=== PATIENT | male | born 1935 | race Caucasian/White ===

== ENCOUNTER → 2019-03-24 12:41 | Outpatient (BNVA) | payer MEDICARE, OTHER, SELFPAY | PROVIDERS: Family Provider Nurse Practitioner; PCP Nurse Practitioner; Visit Provider Nurse Practitioner | DX: E11.9 Type 2 diabetes mellitus without complications (principal); Z79.84 Long term (current) use of oral hypoglycemic drugs; N40.1 Benign prostatic hyperplasia with lower urinary tract symptoms; Z98.61 Coronary angioplasty status; I25.10 Atherosclerotic heart disease of native coronary artery without angina pectoris; E78.5 Hyperlipidemia, unspecified | CPT/HCPCS: 80053; 80061; 83036 ==

== ENCOUNTER → 2019-06-30 17:53 | Outpatient (BNVA) | payer MEDICARE, OTHER, SELFPAY | PROVIDERS: Family Provider Nurse Practitioner; PCP Nurse Practitioner; Visit Provider Nurse Practitioner | DX: E11.9 Type 2 diabetes mellitus without complications (principal); Z79.84 Long term (current) use of oral hypoglycemic drugs; E78.5 Hyperlipidemia, unspecified | CPT/HCPCS: 80053; 80061; 83036 ==

== ENCOUNTER → 2019-12-30 09:18 | Outpatient (BNVA) | payer MEDICARE, OTHER, SELFPAY | PROVIDERS: Family Provider Nurse Practitioner; PCP Nurse Practitioner; Visit Provider Nurse Practitioner | DX: E11.9 Type 2 diabetes mellitus without complications (principal); N40.1 Benign prostatic hyperplasia with lower urinary tract symptoms; I25.10 Atherosclerotic heart disease of native coronary artery without angina pectoris; E78.5 Hyperlipidemia, unspecified; Z79.84 Long term (current) use of oral hypoglycemic drugs; Z95.5 Presence of coronary angioplasty implant and graft | CPT/HCPCS: 80053; 80061; 81000; 83036 ==

== ENCOUNTER → 2020-12-16 11:16 | Outpatient (BNVA) | payer MEDICARE, OTHER, SELFPAY | PROVIDERS: Family Provider Nurse Practitioner; PCP Nurse Practitioner; Visit Provider Nurse Practitioner | DX: E11.9 Type 2 diabetes mellitus without complications (principal); E78.5 Hyperlipidemia, unspecified; Z79.84 Long term (current) use of oral hypoglycemic drugs; Z23 Encounter for immunization | CPT/HCPCS: 80053; 80061; 83036; 83721 ==

== ENCOUNTER → 2021-03-14 10:15 | Outpatient (BNVA) | payer MEDICARE, OTHER, SELFPAY | PROVIDERS: Family Provider Nurse Practitioner; PCP Nurse Practitioner; Visit Provider Nurse Practitioner | DX: E11.9 Type 2 diabetes mellitus without complications (principal); Z79.84 Long term (current) use of oral hypoglycemic drugs; R30.0 Dysuria | CPT/HCPCS: 80053; 81003; 85025; 87077; 87086; 87184 ==

== ENCOUNTER → 2021-06-22 13:14 | Outpatient (BNVA) | payer MEDICARE, OTHER, SELFPAY | PROVIDERS: Family Provider Nurse Practitioner; PCP Nurse Practitioner; Visit Provider Internal Medicine | DX: I25.10 Atherosclerotic heart disease of native coronary artery without angina pectoris (principal); E11.9 Type 2 diabetes mellitus without complications; Z79.84 Long term (current) use of oral hypoglycemic drugs; E78.5 Hyperlipidemia, unspecified; Z95.5 Presence of coronary angioplasty implant and graft | CPT/HCPCS: 99213 ==

== ENCOUNTER → 2021-12-22 10:08 | Outpatient (BNVA) | payer MEDICARE, OTHER, SELFPAY | PROVIDERS: Family Provider Nurse Practitioner; PCP Nurse Practitioner; Visit Provider Nurse Practitioner | DX: E11.9 Type 2 diabetes mellitus without complications (principal); Z79.84 Long term (current) use of oral hypoglycemic drugs | CPT/HCPCS: 80053; 80061; 83036 ==

== ENCOUNTER → 2022-03-22 10:20 | Outpatient (BNVA) | payer MEDICARE, OTHER, SELFPAY | PROVIDERS: Family Provider Nurse Practitioner; PCP Nurse Practitioner; Visit Provider Nurse Practitioner | DX: R05.9 Cough, unspecified (principal) | CPT/HCPCS: 71046 ==

== ENCOUNTER → 2022-06-21 13:18 | Outpatient (BNVA) | payer MEDICARE, OTHER, SELFPAY | PROVIDERS: Family Provider Nurse Practitioner; PCP Nurse Practitioner; Visit Provider Internal Medicine | DX: I25.10 Atherosclerotic heart disease of native coronary artery without angina pectoris (principal); E11.9 Type 2 diabetes mellitus without complications; Z79.84 Long term (current) use of oral hypoglycemic drugs; E78.5 Hyperlipidemia, unspecified; Z95.5 Presence of coronary angioplasty implant and graft; Z79.82 Long term (current) use of aspirin | CPT/HCPCS: 99214 ==

== ENCOUNTER → 2022-09-12 11:40 | Outpatient (BNVA) | payer MEDICARE, OTHER, SELFPAY | PROVIDERS: Family Provider Nurse Practitioner; PCP Nurse Practitioner; Visit Provider Nurse Practitioner | DX: E11.9 Type 2 diabetes mellitus without complications (principal); Z79.84 Long term (current) use of oral hypoglycemic drugs | CPT/HCPCS: 80053; 80061; 83036 ==

== ENCOUNTER → 2022-12-31 12:05 | Outpatient (BNVA) | payer MEDICARE, OTHER, SELFPAY | PROVIDERS: Family Provider Nurse Practitioner; PCP Nurse Practitioner; Visit Provider Nurse Practitioner | DX: E11.9 Type 2 diabetes mellitus without complications (principal); Z79.84 Long term (current) use of oral hypoglycemic drugs; E78.5 Hyperlipidemia, unspecified | CPT/HCPCS: 80053; 80061; 82607; 83036; 84443 ==

== ENCOUNTER 2023-06-15 19:32 | Inpatient (IN) | payer MEDICARE, OTHER, SELFPAY ==
[2023-06-15] VITALS (10 sets, daily range): BP systolic 144–203; BP diastolic 69–108; PULSE 71–81; RESP 18–24; TEMP 36.6–36.7; O2SAT 90–97; BMI 26.6
--- NOTE | 2023-06-15 19:42 | ECG_ITS ---
[facility] Test Date: 2023-06-15 Pat Name: Bernardo Barnett Department: Room: Gender: Male Set Up Person: : 1935 Requested By: Dandy Granda Order Number: [id number] Aleah MD: Cole Gonzalez M.D. Measurements Intervals [place] Rate: 70 P: 43 MS: 203 QRS: 46 QRSD: 108 T: -37 QT: 379 QTc: 410 Interpretive Statements SINUS RHYTHM PROBABLE LATERAL MYOCARDIAL INFARCTION , OF INDETERMINATE AGE [35 ms Q WAVE IN I/aVL/V5/V6] PROBABLE INFERIOR MYOCARDIAL INFARCTION , OF INDETERMINATE AGE [35 ms Q WAVE IN II/aVF] Compared to ECG 01/02/2017 09:19:42 No significant changes Electronically Signed On 06-16-2023 8:13:18 CDT by Cole Gonzalez M.D. [email or web address]
--- NOTE | 2023-06-15 19:44 | CTR_ITS ---
PROCEDURE INFORMATION: Exam: CT Head Without Contrast Exam date and time: 06/15/2023 7:55 PM Age: 88 years old Clinical indication: Stroke-like symptoms; Altered mental status/memory loss; Additional info: RT facial droop; Sudden onset AMS TECHNIQUE: Imaging protocol: Computed tomography of the head without contrast. Radiation optimization: All CT scans at this facility use at least one of these dose optimization techniques: automated exposure control; mA and/or kV adjustment per patient size (includes targeted exams where dose is matched to clinical indication); or iterative reconstruction. Other technique: STROKE PROTOCOL was implemented. COMPARISON: CT cervical spin wo con* [id number] 01/02/2017 12:39 PM RADIATION DOSE METRICS: Total DLP (mGy-cm): 1038.48 FINDINGS: Brain: No hemorrhage. No edema. Moderate diffuse cerebral atrophy and mild sequela of chronic small vessel ischemic disease. No mass effect. Cerebral ventricles: No ventriculomegaly. Paranasal sinuses: Visualized sinuses are unremarkable. No fluid levels. Mastoid air cells: Visualized mastoid air cells are well aerated. Bones/joints: Unremarkable. No acute fracture. Soft tissues: Unremarkable. CT/CT head thrombolytic [id number] IMPRESSION: No acute intracranial abnormality. ASSESSMENT: ASPECTS (Josephine Stroke Program Early CT Score) is 10.
--- NOTE | 2023-06-15 19:44 | XRR_ITS ---
PROCEDURE INFORMATION: Exam: XR Chest Exam date and time: 06/15/2023 7:49 PM Age: 88 years old Clinical indication: Prior surgery; Surgery date: 6+ months; Surgery type: Cardiac stent 2014; Patient HX: AMS; Possible CVA TECHNIQUE: Imaging protocol: Radiologic exam of the chest. Views: 1 view. COMPARISON: CR XR chest 2V* [id number] 03/22/2022 10:23 AM FINDINGS: Lungs: Unremarkable. No consolidation. Pleural spaces: Unremarkable. No pleural effusion. No pneumothorax. Heart/Mediastinum: Unremarkable. No cardiomegaly. Bones/joints: Visualized osseous structures are intact. XR/XR chest 1V portable [id number] IMPRESSION: No acute findings.
--- NOTE | 2023-06-15 19:49 | ED_ITS ---
HPI - Neuro Symptoms/Deficit 2 General: Chief Complaint: Neuro Symptoms/Deficit Stated Complaint: possible stroke Time Seen by Provider: 06/15/23 19:44 History of Present Illness: Patient presented to the ER today with complaints of sudden onset strokelike symptoms. Patient was walking in from working [place] and noticed his right side was a little weak to the point he dropped his cane and said he felt weird to his family. Family checked his blood pressure and noticed it was high so they brought him to the ER immediately. Patient has been off his Plavix for approximately 10 days secondary to a dental procedure. Patient was on his Plavix due to cardiac stents multiple years ago. Patient was last known well was approximately 7 PM. Patient alert oriented x 3, blood glucose is 94, repeat blood pressure is 172/86, patient might have minimal right-sided facial droop and possible decrease in sensation in his right side he just says it feels different. However he says it feels different on his face his upper arm his chest and his lower extremity all equally. 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 CAD (coronary artery disease) Benign prostatic hyperplasia with lower urinary tract symptoms History of pneumothorax Hyperlipidemia Osteoarthritis of knees, bilateral Diabetes mellitus treated with oral medication Surgical History History of retinal detachment Right eye History of appendectomy History of cholecystectomy History of coronary angioplasty History of right inguinal hernia repair History of stem cell transplant Bilateral knees April 2018 Presence of stent in coronary artery 2005 at [facility] [place] Family History Mother Diabetes Brother Diabetes Cancer CLL Social History Smoking and tobacco/nicotine status: never used tobacco/nicotine Second hand smoke exposure: No Alcohol intake: never Substance/Drug Use: never Adopted: No Caregiver/support person: No Lives independently: Yes Household members: spouse Housing: House Marital status: / Number of children: 3 service: Yes branch: [employer] Current occupational status: retired Pets and animals: No Do you think of yourself as: Straight/Heterosexual Current gender identity: Male NIH stroke score 2 NIHSS: Level Of Consciousness - 1a: 0 Level Of Consciousness Questions - 1b: Both Correct Level Of Consciousness Commands - 1c: Both Correct Best Gaze - 2: Normal Visual Mora - 3: Partial Hemianopia Facial Palsy - 4: M inor Paralysis Motor Arm Right - 5: No Drift Motor Arm Left - 5: No Drift Motor Leg Right - 6: No Drift Motor Leg Left - 6: No Drift Limb Ataxia - 7: Absent Sensory - 8: Mild To Moderate Loss Best Language - 9: No Aphasia Dysarthia - 10: Normal Extinction And Inattention - 11: 0 Score: Total Score: 3 Physical Exam 2 Const: COMMON NORMALS: no acute distress, average body habitus, patient oriented x3, no limitations, healthy appearing, alert and well nourished HENMT: COMMON NORMALS: normocephalic, atraumatic, hearing grossly normal bilaterally, external ears normal, Normal external nose present, moist oral mucous membranes and oropharynx normal HEAD & SCALP: normocephalic and atraumatic NOSE: Normal external nose present EXTERNAL EAR: Yes external ears normal Eye: COMMON NORMALS: Equal, round and reactive pupils present, EOMs intact bilaterally, conjunctivae normal and no scleral icterus CONJUNCTIVA: Yes conjunctivae normal PUPIL: Yes Equal, round and reactive pupils present Neck/C-Spine: COMMON NORMALS: full ROM, no lymphadenopathy, supple, no meningeal signs, no JVD and Thyroid normal THYROID: Thyroid normal Chest: COMMONS NORMALS: normal inspection of the chest and normal palpation of entire chest wall Resp: COMMON NORMALS: normal respiratory effort, No retractions, No use of accessory muscles and clear to auscultation bilaterally AUSCULTATION: clear to auscultation bilaterally Cardio: COMMON NORMALS: no JVD, regular rate, regular rhythm, S1 normal heart sound present, S2 normal heart sound present, No gallops present (Cardio), No clicks present (Cardio) and No murmurs present (Cardio) RATE: regular rate RHYTHM: regular rhythm HEART SOUNDS: S1 normal heart sound present and S2 normal heart sound present GI: COMMON NORMALS: Normal to inspection, nondistended, normoactive bowel sounds present, Soft to palpation, non-tender, No hepatosplenomegaly present and no masses PALPATION: Yes Soft to palpation and Yes No hepatosplenomegaly present Neuro: COMMON NORMALS: patient oriented x3 SENSORIUM/ORIENTATION: Yes alert MENINGEAL SIGNS: Yes no meningeal signs Course 2 Vital Signs: Vital signs: Vital Signs Temperature 98.0 F 06/15/23 19:36 Pulse Rate 72 06/15/23 19:36 Respiratory Rate 18 06/15/23 19:36 Blood Pressure 195/90 06/15/23 19:36 Pulse Oximetry 97 06/15/23 19:36 Oxygen Delivery Me thod Room Air 06/15/23 19:36 MDM - Neuro Symptoms/Deficit Medical Decision Making Vitals physical exam lab work was performed, CT scan and chest x-ray all of which was essentially benign. 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 Patino did recommend TNKase secondary to the visual field deficit, we did transfer the images to the cloud so she can take a look at there was herself. Dr. Heck was consulted who wanted to place patient ICU observation for further evaluation and treatment. Differential Diagnosis Likely cerebrovascular accident and transient cerebral ischemia; Unlikely carpal tunnel syndrome, convulsions, delirium, subarachnoid hemorrhage, peripheral neuropathy or multiple sclerosis Medical Records I reviewed the patient's medical records. Lab Data I reviewed the patient's lab results. 06/15/23 19:38 06/15/23 19:38 Radiology Impressions Chest X-Ray 06/15/23 19:44 IMPRESSION: No acute findings. Head CT 06/15/23 19:44 IMPRESSION: No acute intracranial abnormality. ASSESSMENT: ASPECTS (Josephine Stroke Program Early CT Score) is 10. 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 IMPRESSION: No stenosis or occlusion. REFERENCES: NASCET CRITERIA. The degree of stenosis in the cervical segment of the internal carotid artery is based on NASCET criteria. Normal is no stenosis. Mild is less than 50% stenosis. Moderate is 50-69% stenosis. Severe is 70% to 99% stenosis. Total occlusion is no detectable patent lumen. ADDENDUM: 06/15/232032 THIS REPORT CONTAINS FINDINGS THAT MAY BE CRITICAL TO PATIENT CARE. The findings were verbally communicated via telephone conference with Dandy Granda at 8:31 PM CDT on 06/15/2023. The findings were acknowledged and understood. Laboratory Results WBC 5.56 10^3/uL (3.29-11.43) 06/15/23 19:38 RBC 4.59 10^6/uL (3.85-5.65) 06/15/23 19:38 Hgb 14.00 g/dL (11.27-16.99) 06/15/23 19:38 Hct 42.0 % (37-53) 06/15/23 19:38 MCV 91.5 fl (82-101) 06/15/23 19:38 MCH 30.5 pg (27-33) 06/15/23 19:38 MCHC 33.3 g/dL (30-55) 06/15/23 19:38 RDW 13.6 % (12.1-15.1) 06/15/23 19:38 Plt Count 337 10^3/cmm (157-399) 06/15/23 19:38 MPV 10.0 fL (7.4-10.4) 06/15/23 19:38 Neut % (Auto) 54.1 % 06/15/23 19:38 Lymph % (Auto) 29.0 % 06/15/23 19:38 Crowley % (Auto) 10.6 % 06/15/23 19:38 Eos % (Auto) 5.2 % 06/15/23 19:38 Baso % (Auto) 0.7 % 06/15/23 19:38 Neut # (Auto) 3.01 10^3/uL (1.8-7.7) 06/15/23 19:38 Lymph # (Auto) 1.6 10^3/uL (0.8-4.8) 06/15/23 19:38 Crowley # (Auto) 0.6 10^3/uL (0.2-0.9) 06/15/23 19:38 Eos # (Auto) 0.3 10^3/uL (0.0-0.8) 06/15/23 19:38 Baso # (Auto) 0.0 10^3/uL (0.0-0.1) 06/15/23 19:38 Nucleated RBC % (auto) 0 % 06/15/23 19:38 Nucleated RBCs # 0.0 /100WBC 06/15/23 19:38 PT 14.10 SECONDS (12.1-14.9) 06/15/23 19:38 INR 1.06 (0.8-1.2) 06/15/23 19:38 APTT 36.3 SECONDS (23.9-36.7) 06/15/23 19:38 Sodium 142 mmol/L (136-145) 06/15/23 19:38 Potassium 4.5 mmol/L (3.5-5.1) 06/15/23 19:38 Chloride 107 mmol/L (98-107) 06/15/23 19:38 Carbon Dioxide 27 mmol/L (22-29) 06/15/23 19:38 Anion Gap 12.5 (5-19) 06/15/23 19:38 BUN 18 mg/dL (8-23) 06/15/23 19:38 Creatinine 1.0 mg/dL (0.7-1.2) 06/15/23 19:38 GFR Calculation Not Reportable 06/15/23 19:38 Glucose 109 mg/dL (65-115) 06/15/23 19:38 Calculated Osmolality 296 mOsm/kg (285-295) H 06/15/23 19:38 Calcium 10.3 mg/dL (8.5-10.5) 06/15/23 19:38 Magnesium 2.0 mg/dL (1.7-2.3) 06/15/23 19:38 Total Bilirubin 0.3 mg/dL (0.15-1.2) 06/15/23 19:38 AST 23 U/L (0-40) 06/15/23 19:38 ALT 12 U/L (0-41) 06/15/23 19:38 Alkaline Phosphatase 66 U/L (40-130) 06/15/23 19:38 C-Reactive Protein 14.6 mg/L (0.0-4.9) H 06/15/23 19:38 Total Protein 7.4 g/dL (6.6-8.7) 06/15/23 19:38 Albumin 4.2 g/dL (3.5-5.2) 06/15/23 19:38 Globulin 3.2 g/dL (1.3-4.6) 06/15/23 19:38 TSH 1.66 uIU/mL (0.27-4.20) 06/15/23 19:38 Ethyl Alcohol < 10 mg/dL (0-10) 06/15/23 19:38 All radiology interpretation(s) finalized by discharge Discharge Plan Discharge Patient Disposition: Placed in Observation Clinical Impression: Cerebrovascular accident Qualifiers: CVA mechanism: unspecified Qualified Code(s): I63.9 - Cerebral infarction, unspecified Coding Level of Care Code ED Domestic Cleaner for Tera Huston
[2023-06-15 19:51] LABS: Basophils % 0.7 %; Eosinophils # 0.3 10^3/uL (0.0-0.8); Eosinophils % 5.2 %; Lymphocytes # 1.6 10^3/uL (0.8-4.8); Mean Corpuscular HGB Conc 33.3 g/dL (30-55); Mean Corpuscular Hemoglobin 30.5 pg (27-33); Mean Corpuscular Volume 91.5 fl (82-101); Monocytes # 0.6 10^3/uL (0.2-0.9); Monocytes % 10.6 %; Neutrophils # 3.01 10^3/uL (1.8-7.7); Neutrophils % 54.1 %; Nucleated Red Blood Cells % 0 %; Platelet Count 337 10^3/cmm (157-399); Red Blood Count 4.59 10^6/uL (3.85-5.65); Red Cell Distribution Width 13.6 % (12.1-15.1); White Blood Count 5.56 10^3/uL (3.29-11.43)
--- NOTE | 2023-06-15 19:54 | CTR_ITS ---
PROCEDURE INFORMATION: Exam: CTA Head With Contrast, Arteriography Exam date and time: 06/15/2023 7:59 PM Age: 88 years old Clinical indication: Stroke-like symptoms; Altered mental status/memory loss; Right facial droop; Additional info: RT facial droop; Sudden onset AMS TECHNIQUE: Imaging protocol: Computed tomographic angiography of the head with contrast. Exam focused on the arteries. 3D rendering (Not supervised by radiologist): MIP and/or 3D reconstructed images were created by the technologist. Radiation optimization: All CT scans at this facility use at least one of these dose optimization techniques: automated exposure control; mA and/or kV adjustment per patient size (includes targeted exams where dose is matched to clinical indication); or iterative reconstruction. Contrast material: OMNI 350; Contrast volume: 100 ml; Contrast route: INTRAVENOUS (IV); COMPARISON: CT head thrombolytic [id number] 06/15/2023 7:55 PM RADIATION DOSE METRICS: Total DLP (mGy-cm): 432.92 FINDINGS: ANTERIOR CIRCULATION: Right internal carotid artery: Intracranial segment is patent with no significant stenosis. No aneurysm. Right middle cerebral artery: No occlusion or significant stenosis. No aneurysm. Right anterior cerebral artery: No occlusion or significant stenosis. No aneurysm. Left internal carotid artery: Intracranial segment is patent with no significant stenosis. No aneurysm. Left middle cerebral artery: No occlusion or significant stenosis. No aneurysm. Left anterior cerebral artery: No occlusion or significant stenosis. No aneurysm. POSTERIOR CIRCULATION: Right vertebral artery: No occlusion or significant stenosis. No aneurysm. Left vertebral artery: No occlusion or significant stenosis. No aneurysm. Basilar artery: No occlusion or significant stenosis. No aneurysm. Right posterior cerebral artery: No occlusion or significant stenosis. No aneurysm. 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 Brain: No definite mass, mass effect, or midline shift. Cerebral ventricles: No ventriculomegaly. Bones/joints: Unremarkable. No acute fracture. Soft tissues: Unremarkable. PROCEDURE INFORMATION: Exam: CTA Neck With Contrast Exam date and time: 06/15/2023 7:59 PM Age: 88 years old Clinical indication: Stroke-like symptoms; Altered mental status/memory loss; Right facial droop; Additional info: RT facial droop; Sudden onset AMS TECHNIQUE: Imaging protocol: Computed tomographic angiography of the neck with contrast. Exam focused on the cervical segments of the vasculature. 3D rendering (Not supervised by radiologist): MIP and/or 3D reconstructed images were created by the technologist. Radiation optimization: All CT scans at this facility use at least one of these dose optimization techniques: automated exposure control; mA and/or kV adjustment per patient size (includes targeted exams where dose is matched to clinical indication); or iterative reconstruction. Contrast material: OMNI 350; Contrast volume: 100 ml; Contrast route: INTRAVENOUS (IV); COMPARISON: CT cervical spin wo con* [id number] 01/02/2017 12:39 PM RADIATION DOSE METRICS: Total DLP (mGy-cm): 432.92 FINDINGS: Right common carotid artery: No stenosis. No dissection or occlusion. Right internal carotid artery: No stenosis of the extracranial segment. No dissection or occlusion. Right external carotid artery: No occlusion or stenosis of the origin. Left common carotid artery: No stenosis. No dissection or occlusion. Left internal carotid artery: No stenosis of the extracranial segment. No dissection or occlusion. Left external carotid artery: No occlusion or stenosis of the origin. Right vertebral artery: No stenosis. No dissection or occlusion. Left vertebral artery: No stenosis. No dissection or occlusion. Soft tissues: Normal. No significant soft tissue swelling. Bones/joints: No acute fracture. 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 IMPRESSION: No stenosis or occlusion. REFERENCES: NASCET CRITERIA. The degree of stenosis in the cervical segment of the internal carotid artery is based on NASCET criteria. Normal is no stenosis. Mild is less than 50% stenosis. Moderate is 50-69% stenosis. Severe is 70% to 99% stenosis. Total occlusion is no detectable patent lumen.
[2023-06-15 20:05] LABS: INR 1.06 (0.8-1.2)
[2023-06-15 20:06] LABS: Partial Thromboplastin Time 36.3 SECONDS (23.9-36.7)
[2023-06-15] MEDS: iohexol 350 mg/mL 500 mL Btl (per mL) IV (20:16)
[2023-06-15 20:21] LABS: Alanine Aminotransferase 12 U/L (0-41); Albumin Level 4.2 g/dL (3.5-5.2); Alkaline Phosphatase 66 U/L (40-130); Anion Gap 12.5 (5-19); Aspartate Amino Transferase 23 U/L (0-40); Blood Urea Nitrogen 18 mg/dL (8-23); C Reactive Protein 14.6 mg/L (0.0-4.9); Calcium 10.3 mg/dL (8.5-10.5); Carbon Dioxide 27 mmol/L (22-29); Chloride 107 mmol/L (98-107); Creatinine Clr Calc Pharmacy 56.3091; Globulin 3.2 g/dL (1.3-4.6); Glucose 109 mg/dL (65-115); Osmolality Calculated 296 mOsm/kg (285-295); Potassium 4.5 mmol/L (3.5-5.1); Sodium 142 mmol/L (136-145); Thyroid Stimulating Hormone 1.66 uIU/mL (0.27-4.20); Total Bilirubin 0.3 mg/dL (0.15-1.2); Total Protein 7.4 g/dL (6.6-8.7)
[2023-06-15 20:26] LABS: Alcohol Level < 10 mg/dL (0-10)
[2023-06-15 20:58] LABS: Add Urine Microscopic? YES; Amphetamines Screen Urine Negative (Negative); Bacteria Urine 2+ /hpf; Barbiturates Screen Urine Negative (Negative); Benzodiazepines Screen Urine Negative (Negative); Bilirubin Urine Neg (Negative); Blood Urine 2+ (Negative); Cocaine Screen Urine Negative (Negative); Glucose Urine UA Norm (Normal); Ketones Urine Negative (Negative); Leukocyte Esterase Urine 2+ (Negative); Mucus Urine 1+ /hpf; Nitrate Urine Positive (Negative); Opiate Screen Urine Negative (Negative); PCP Screen Urine Negative (Negative); Protein Urine Neg (Negative); Specific Gravity, Urine 1.005 (1.005-1.030); Squamous Epithelial Cell Urine 0-4 /hpf (0-5); THC Screen Urine Negative (Negative); Urine Appearance Cloudy (CLEAR); Urine Color Yellow (Yellow); Urobilinogen Urine Neg (Negative); WBC Urine 55-80 /hpf (0-5); pH Urine 7 (5-7)
[2023-06-15 20:59] LABS: Add Urine Culture? Yes; Amorphous Sediment Urine 1+ /hpf
[2023-06-15] MEDS: tenecteplase 50mg Box (ACUTE MYOCARIDAL INFARCTION) IVP (21:43)
--- NOTE | 2023-06-15 22:18 | PC.NURSE ---
Pt. has began to have small amount of bleeding around gums. Family states that the patient had dental surgery on saturday. I have reported the bleeding to Dr. Granda and about the dental surgery on saturday. Dr. Granda was aware of the dental surgery on saturday. Pt. blood pressure began to rise to 190/101. I reported the blood pressure to Dr. Granda and he ordered labetolol. I will continue to monitor.
[2023-06-15] MEDS: labetalol 5 mg/mL SDV 20mL 20 MG IVP (22:20)
--- NOTE | 2023-06-15 22:38 | PC.NURSE ---
Gauze in mouth changed 3 times. Gauze not completly saturated with blood, but bleeding is small and consistent.
--- NOTE | 2023-06-15 22:40 | PC.NURSE ---
Pt. placed on 2L of oxygen per nasal canula. Pt. O2 down to 90-89 percent with gauze in his mouth and patient getting drowsy.
--- NOTE | 2023-06-15 22:55 | P.HP_ITS ---
Providers/Chief Complaint 2 Admitting Physician: January Heck MD Primary Care Provider: Shasta Reid, SSIS DEVELOPER-C Chief Complaint: possible stroke History of Present Illness Bernardo Barnett is a 88 year old male with a past medical history of dyslipidemia, glaucoma, retinal detachment right eye 2013, diabetes mellitus presented to the emergency room today with strokelike symptoms. Patient was asymptomatic until about 7 PM this evening when he noticed that his right side was weaker compared to the left. He was unable to hold his cane and had some paresthesias. Family brought him to the ER due to concern for stroke. Upon arrival to the ER he was noted to be hypertensive with systolic blood pressure over 200. NIH stroke scale was 3. He had right-sided facial droop and heaviness involving the right side along with reduced vision from the right eye. Patient typically takes Plavix but has been off of this for the past 10 days as he recently underwent dental extraction. History of stenting remotely [address] of the head was unremarkable. CTA showed severe stenosis/near occlusion of the P1 segment of the left ASSORTER LAUNDRY. Case was discussed by ER physician with neurology at [facility] who recommended TNKase. Patient received the medication at 2143 hrs. He is being admitted to the ICU for post tenecteplase monitoring. At the time of my assessment, patient has mild dysarthria. Initially appeared to have some word finding difficulty when attempting to read from a visual chart, however suspect this is related to poor vision, he is unable to read words clearly on the sheet presented to him. He is appropriate in conversation. Able to speak 2-3 sentences with correct words in context. Correctly tells us his name, age and date of . Needed to be reoriented with regards to his whereabouts. currently right-sided strength and paresthesia appears to be improving. Tenecteplase infusion was complicated by oral bleeding at site of recent dental procedure of the upper gums. Review of Systems 2 General: Reports: 10 or more systems reviewed and unremarkable except in HPI and below Const: Denies: fever(s), chills or body aches Eyes: Denies: change in vision, blurry vision or photophobia ENMT: Reports: hoarseness; Denies: throat pain, enlarged tonsils, odynophagia or nasal congestion Card: Denies: chest pain, palpitations, irregular heart rhythm, edema, swelling of feet/ankles, lightheadedness, pre-syncope, dyspnea on exertion or orthopnea Resp: Denies: dyspnea, productive cough, non-productive cough, wheezing, stridor, pain on inspiration, change in phlegm color, hemoptysis or chest congestion GI: Denies: abdominal pain, nausea, vomiting, hematemesis, coffee ground emesis, dysphagia, heartburn, diarrhea, constipation, GI cramping, change in stool character, hematochezia or melena : Denies: flank pain, dysuria, urinary frequency, urinary urgency, urinary hesitancy or hematuria Musc: Denies: neck pain, back pain, extremity pain, joint swelling, joint warmth or deformity Neuro: Denies: headache(s), numbness in extremities, weakness in extremities, sensory changes, difficulty walking, frequent falls, dizziness, vertigo, behavioral changes, Slurred speech present or seizure-like activity Psych: Denies: anxiety, depression, suicidal ideation or homicidal ideation Endo: Denies: polyuria, polydipsia, tired all the time, cold intolerance or hot flashes [place]/Lymph: Denies: easy bruising or easy bleeding Medications/Allergies Home Medications Medication Instructions Recorded Confirmed Last Taken Type aspirin 325 mg tablet 325 mg PO QDAY 03/23/19 05/31/23 Unknown History multivitamin (Daily Multi-Vitamin 1 tab PO DAILY 06/11/19 05/31/23 Unknown History tablet) omega-3 fatty acids 1,000 mg 2,000 mg (2 x 1,000 mg) PO BID 12/19/20 05/31/23 Unknown Rx capsule (Fish Oil Concentrate) #120 caps fenofibrate nanocrystallized 145 145 mg PO DAILY #90 tabs 03/29/23 05/31/23 Unknown Rx mg tablet (Tricor) finasteride 5 mg tablet 5 mg PO QDAY #90 tabs 03/29/23 05/31/23 Unknown Rx latanoprost 0.005 % eye drops See Rx Instructions ophthalmic 03/29/23 05/31/23 Unknown Rx (eye) .at bedtime #2.5 mL lisinopril 10 mg tablet 10 mg PO QDAY #90 tabs 03/29/23 05/31/23 Unknown Rx magnesium oxide 400 mg PO BID #180 tabs 03/29/23 05/31/23 Unknown Rx metformin 500 mg tablet,extended 500 mg PO BID #180 tabs 03/29/23 05/31/23 Unknown Rx release 24 hr metoprolol succinate 25 mg 25 mg PO Q24H #90 tabs 03/29/23 05/31/23 Unknown Rx tablet,extended release 24 hr (Toprol XL) brimonidine 0.2 % eye drops See Rx Instructions .Route 06/14/23 Unknown Rx .COMPLEX #20 mL timolol maleate 0.5 % eye drops See Rx Instructions .Route 06/14/23 Unknown Rx .COMPLEX #20 mL Allergies Allergy/AdvReac Type Severity Reaction Status Date / Time rosuvastatin [From Crestor] AdvReac Severe ADR-Muscle Verified 06/15/23 19:45 Pain PFSH Acute 2 PFSH: Medical History Glaucoma Urethral stricture in male CAD (coronary artery disease) Benign prostatic hyperplasia with lower urinary tract symptoms History of pneumothorax Hyperlipidemia Osteoarthritis of knees, bilateral Diabetes mellitus treated with oral medication Surgical History History of retinal detachment Right eye History of appendectomy History of cholecystectomy History of coronary angioplasty History of right inguinal hernia repair History of stem cell transplant Bilateral knees April 2018 [place] [facility] [place] History Mother Diabetes Brother Diabetes Cancer CLL Social History Smoking and tobacco/nicotine status: never used tobacco/nicotine Second hand smoke exposure: No Alcohol intake: never Substance/Drug Use: never Adopted: No Caregiver/support person: No Lives independently: Yes Household members: spouse Housing: House Marital status: / Number of children: 3 service: Yes branch: [employer] Current occupational status: retired Pets and animals: No Do you think of yourself as: Straight/Heterosexual Current gender identity: Male Vitals/I&O/Wt Last Vital Signs Temp 98.0 F 06/15/23 19:36 Pulse 81 06/15/23 22:39 Resp 21 H 06/15/23 22:39 BP 164/77 06/15/23 22:39 Pulse Ox 94 04/20/24 22:39 O2 Del Method Nasal Cannula 06/15/23 22:39 Weight last 48 hrs Weight 77.564 kg Weight 81.647 kg Physical Exam 2 Narrative: General: No acute distress, AO x3 HEENT: PERRLA, pupils bilaterally equal and reactive, pallors not present Chest: Normal vesicular breath sounds, no added sounds, equal good air entry bilaterally CVS: S1-S2 regular, no murmurs, no tachycardia, no gallops, no rubs Abdomen: Soft, nontender, no organomegaly, bowel sounds present Neuro: Awake, alert mild dysarthria, slurred speech, symmetrical strength 5 out of 5 bilaterally upper and lower extremities, no facial deformity Data 06/16/23 04:14 06/16/23 04:14 Other Labs: Radiology Impressions Chest X-Ray 06/15/23 19:44 IMPRESSION: No acute findings. Head CT 06/15/23 19:44 IMPRESSION: No acute intracranial abnormality. ASSESSMENT: ASPECTS ([place] Stroke Program Early CT Score) is 10. Head/Neck CTA 06/15/23 19:54 IMPRESSION: Severe stenosis/near occlusion of the P1 segment of the left ASSORTER LAUNDRY. IMPRESSION: No stenosis or occlusion. REFERENCES: NASCET CRITERIA. The degree of stenosis in the cervical segment of the internal carotid artery is based on NASCET criteria. Normal is no stenosis. Mild is less than 50% stenosis. Moderate is 50-69% stenosis. Severe is 70% to 99% stenosis. Total occlusion is no detectable patent lumen. ADDENDUM: 06/15/232032 THIS REPORT CONTAINS FINDINGS THAT MAY BE CRITICAL TO PATIENT CARE. The findings were verbally communicated via telephone conference with Dandy Granda at 8:31 PM CDT on 06/15/2023. The findings were acknowledged and understood. Laboratory Results WBC 4.26 10^3/uL (3.29-11.43) 06/16/23 04:14 RBC 4.50 10^6/uL (3.85-5.65) 06/16/23 04:14 Hgb 13.20 g/dL (11.27-16.99) 06/16/23 04:14 Hct 41.3 % (37-53) 06/16/23 04:14 MCV 91.8 fl (82-101) 06/16/23 04:14 MCH 29.3 pg (27-33) 06/16/23 04:14 MCHC 32.0 g/dL (30-55) 06/16/23 04:14 RDW 13.4 % (12.1-15.1) 06/16/23 04:14 Plt Count 311 10^3/cmm (157-399) 06/16/23 04:14 MPV 10.7 fL (7.4-10.4) H 06/16/23 04:14 Neut % (Auto) 66.9 % 06/16/23 04:14 Lymph % (Auto) 22.3 % 06/16/23 04:14 [place] % (Auto) 8.7 % 06/16/23 04:14 Eos % (Auto) 1.4 % 06/16/23 04:14 Baso % (Auto) 0.2 % 06/16/23 04:14 Neut # (Auto) 2.85 10^3/uL (1.8-7.7) 06/16/23 04:14 Lymph # (Auto) 1.0 10^3/uL (0.8-4.8) 06/16/23 04:14 [place] # (Auto) 0.4 10^3/uL (0.2-0.9) 06/16/23 04:14 Eos # (Auto) 0.1 10^3/uL (0.0-0.8) 06/16/23 04:14 Baso # (Auto) 0.0 10^3/uL (0.0-0.1) 06/16/23 04:14 Nucleated RBC % (auto) 0 % 06/16/23 04:14 Nucleated RBCs # 0.0 /100WBC 06/16/23 04:14 PT 14.10 SECONDS (12.1-14.9) 06/15/23 19:38 INR 1.06 (0.8-1.2) 06/15/23 19:38 APTT 36.3 SECONDS (23.9-36.7) 06/15/23 19:38 Sodium 145 mmol/L (136-145) 06/16/23 04:14 Potassium 5.1 mmol/L (3.5-5.1) 06/16/23 04:14 Chloride 109 mmol/L (98-107) H 06/16/23 04:14 Carbon Dioxide 24 mmol/L (22-29) 06/16/23 04:14 Anion Gap 17.1 (5-19) 06/16/23 04:14 BUN 18 mg/dL (8-23) 06/16/23 04:14 Creatinine 0.9 mg/dL (0.7-1.2) 06/16/23 04:14 GFR Calculation Not Reportable 06/16/23 04:14 Glucose 116 mg/dL (65-115) H 06/16/23 04:14 Estimat Average Glucose 114 06/16/23 04:14 Hemoglobin A1c 5.6 % (4.0-6.0) 06/16/23 04:14 Calculated Osmolality 303 mOsm/kg (285-295) H 06/16/23 04:14 Calcium 9.5 mg/dL (8.5-10.5) 06/16/23 04:14 Magnesium 2.0 mg/dL (1.7-2.3) 06/15/23 19:38 Total Bilirubin 0.3 mg/dL (0.15-1.2) 06/16/23 04:14 AST 20 U/L (0-40) 06/16/23 04:14 ALT 11 U/L (0-41) 06/16/23 04:14 Alkaline Phosphatase 64 U/L (40-130) 06/16/23 04:14 C-Reactive Protein 14.6 mg/L (0.0-4.9) H 06/15/23 19:38 Total Protein 6.8 g/dL (6.6-8.7) 06/16/23 04:14 Albumin 3.7 g/dL (3.5-5.2) 06/16/23 04:14 Globulin 3.1 g/dL (1.3-4.6) 06/16/23 04:14 Triglycerides 157 mg/dL (0-150) H 06/16/23 04:14 Cholesterol 214 mg/dL (0-200) H 06/16/23 04:14 LDL Cholesterol, Calc 150 mg/dL (50-129) H 06/16/23 04:14 HDL Cholesterol 33 mg/dL (60-100) L 06/16/23 04:14 LDL/HDL Ratio 4.55 RATIO (0.00-3.22) H 06/16/23 04:14 Cholesterol/HDL Ratio 6.48 mg/dL (1.0-5.00) H 06/16/23 04:14 TSH 1.66 uIU/mL (0.27-4.20) 06/15/23 19:38 Urine Color Yellow (Yellow) 06/15/23 20:38 Urine Appearance Cloudy (CLEAR) A 06/15/23 20:38 Urine pH 7 (5-7) 06/15/23 20:38 Ur Specific [place] 1.005 (1.005-1.030) 06/15/23 20:38 Urine Protein Neg (Negative) 06/15/23 20:38 Urine Glucose (UA) Norm (Normal) 06/15/23 20:38 Urine Ketones Negative (Negative) 06/15/23 20:38 Urine Blood 2+ (Negative) H 06/15/23 20:38 Urine Nitrate Positive (Negative) H 06/15/23 20:38 Urine Bilirubin Neg (Negative) 06/15/23 20:38 Urine Urobilinogen Neg mg/dL (Negative) 06/15/23 20:38 Ur Leukocyte Esterase 2+ (Negative) H 06/15/23 20:38 Urine RBC 5-10 /hpf (0-2) H 06/15/23 20:38 Urine WBC 55-80 /hpf (0-5) H 06/15/23 20:38 Ur Squamous Epith Cells 0-4 /hpf (0-5) H 06/15/23 20:38 Amorphous Sediment 1+ /hpf 06/15/23 20:38 Urine Bacteria 2+ /hpf (NONE) H 06/15/23 20:38 Urine Mucus 1+ /hpf 06/15/23 20:38 Urine Opiates Screen Negative ng/mL (Negative) 06/15/23 20:38 Ur Barbiturates Screen Negative ng/mL (Negative) 06/15/23 20:38 Ur Phencyclidine Scrn Negative ng/mL (Negative) 06/15/23 20:38 Ur Amphetamines Screen Negative ng/mL (Negative) 06/15/23 20:38 U Benzodiazepines Scrn Negative ng/mL (Negative) 06/15/23 20:38 Urine Cocaine Screen Negative ng/mL (Negative) 06/15/23 20:38 U Marijuana (THC) Screen Negative ng/mL (Negative) 06/15/23 20:38 Ethyl Alcohol < 10 mg/dL (0-10) 06/15/23 19:38 A&P Assessment and plan (1) Cerebrovascular accident: Admit the patient to ICU for close neuro monitoring post tenecteplase Received tenecteplase at [address] head unremarkable CTA head and neck severe stenosis/near occlusion of the P1 segment of the left ASSORTER LAUNDRY. Telemetry monitoring on the unit to evaluate for underlying arrhythmias. Echocardiogram ordered and pending. Start aspirin 81 mg daily 24 hrs post tenecteplase Has not tolerated statins in the past. currently on fenofibrate which we will continue Maintain blood pressure less than 180/[address] head 24 hours post tenecteplase to monitor for any bleeding as a side effect. PT OT speech therapy assessment Qualifiers: CVA mechanism: unspecified Qualified Code(s): I63.9 - Cerebral infarction, unspecified (2) Oral bleeding: Tenecteplase infusion complicated by bleeding the upper gel. Patient is edentulous, bleeding improved by application of direct pressure via gauze. Plan positive UA : Pending urine cx. ceftriaxone 1 gm iv q24h Home medication list needs to be confirmed DVT PPx: Scds only, a/c contraindicated Attestations 2 Medical Necessity Statement*: Greater than 2 midnight admission is anticipated at this time Critical Care Time: The high probability of a clinically significant, sudden or life threatening deterioration of the patient's [neurological] system(s) required my full and direct attention, intervention and personal management. The critical care time is as shown. This time is in addition to time spent performing any reported procedures but includes the following: [x] Data and vital sign review and interpretation [x] Patient assessment, examination and intervention [x] Documentation [x] Medication orders and management Critical Care Time (min): 45 Coding Level of Care Code Critical Care >/= 30 minutes Diagnoses Cerebrovascular accident I63.9 CVA mechanism: unspecified Oral bleeding K13.79
--- NOTE | 2023-06-15 23:45 | PC.NURSE ---
Received from ER via stretcher with O2 at 2L NC, moved to ICU bed. NIHSS done at bedside with Dr. Heck at bedside, score of 5 attained, Dr. Heck stated that patient scored a 3 when in the ICU but patient is about the same as he was in ER. Bleeding noted from gums where patient had teeth pulled on 06/11/23, evaluated per Dr. Heck. Gauze placed in mouth to absorb the blood. V/S stable. No reports of pain or discomfort.
[2023-06-16] VITALS (62 sets, daily range): BP systolic 116–162; BP diastolic 51–86; PULSE 58–84; RESP 15–30; TEMP 36.4–36.9; O2SAT 85–97
[2023-06-16] MEDS: finasteride 5 mg Tablet PO ×2 (00:01→09:16)
[2023-06-16 05:05] LABS: Basophils % 0.2 %; Eosinophils # 0.1 10^3/uL (0.0-0.8); Eosinophils % 1.4 %; Hematocrit 41.3 % (37-53); Lymphocytes % 22.3 %; Mean Corpuscular Hemoglobin 29.3 pg (27-33); Mean Corpuscular Volume 91.8 fl (82-101); Mean Platelet Volume 10.7 fL (7.4-10.4); Monocytes # 0.4 10^3/uL (0.2-0.9); Monocytes % 8.7 %; Neutrophils # 2.85 10^3/uL (1.8-7.7); Neutrophils % 66.9 %; Nucleated Red Blood Cells % 0 %; Platelet Count 311 10^3/cmm (157-399); Red Cell Distribution Width 13.4 % (12.1-15.1); White Blood Count 4.26 10^3/uL (3.29-11.43)
[2023-06-16 05:15] LABS: Alanine Aminotransferase 11 U/L (0-41); Albumin Level 3.7 g/dL (3.5-5.2); Alkaline Phosphatase 64 U/L (40-130); Anion Gap 17.1 (5-19); Aspartate Amino Transferase 20 U/L (0-40); Blood Urea Nitrogen 18 mg/dL (8-23); Calcium 9.5 mg/dL (8.5-10.5); Carbon Dioxide 24 mmol/L (22-29); Chloride 109 mmol/L (98-107); Chol HDL Ratio 6.48 mg/dL (1.0-5.00); Cholesterol 214 mg/dL (0-200); Globulin 3.1 g/dL (1.3-4.6); Glucose 116 mg/dL (65-115); HDL Cholesterol 33 mg/dL (60-100); LDL Cholesterol Calculated 150 mg/dL (50-129); LDL HDL Ratio 4.55 RATIO (0.00-3.22); Osmolality Calculated 303 mOsm/kg (285-295); Potassium 5.1 mmol/L (3.5-5.1); Sodium 145 mmol/L (136-145); Total Bilirubin 0.3 mg/dL (0.15-1.2); Total Protein 6.8 g/dL (6.6-8.7); Triglycerides 157 mg/dL (0-150)
[2023-06-16 05:19] LABS: Estmated Average Glucose 114; Hemoglobin A1C 5.6 % (4.0-6.0)
[2023-06-16] MEDS: cefTRIAXone 1,000 MG in sodium chloride 0.9% (plus) 50 ML 100 MG IV (05:40)
--- NOTE | 2023-06-16 06:00 | USCV_ITS ---
Bernardo Barnett Age: 88 Gender: M : 1935 Exam Date: 06/16/2023 10:07 Ordering Phys: January Heck MD Technologist: Justo Allred [place] [facility] [place]: [place] BP: 138 / 75 HR: 56 Rhythm: Sinus Technical Quality: Adequate MEASUREMENTS (Male / Female) Normal Values 2D ECHO LVOT Diameter 2.4 cm LV Ejection Fraction MOD 2C 68.4 % LV Ejection Fraction 2C AL 69.6 % LA Diameter 4.0 cm RA Systolic Volume 4C AL 23.8 ml RA Systolic Volume 4C MOD 23.3 ml LA Sys Volume AL 45.1 cm cubed LA Sys Volume Index AL 22.8 cm cubed/m squared Aorta at Sinotubular Diameter 2.4 cm M-MODE LA Ao Ratio MM 1.5 AV Cusp Separation MM 1.1 cm DOPPLER AV Peak Velocity 239.0 cm/s LVOT Peak Velocity 86.0 cm/s AV Area Cont Eq vti 1.6 cm squared AV Area Cont Eq pk 1.7 cm squared MV Peak Velocity 118.0 cm/s MV Area PHT 5.3 cm squared Mitral E to A Ratio 0.7 TV Peak Velocity 205.5 cm/s TR Peak Velocity 265.0 cm/s TR Peak Gradient 28.1 mmHg TR Mean Velocity 185.0 cm/s TR Mean Gradient 15.6 mmHg TR Velocity Time Integral 90.0 cm PV Peak Velocity 113.0 cm/s RV Ejection Time 0.3 s FINDINGS Left Ventricle Normal left ventricular size, systolic function and wall thickness, with no regional wall motion abnormalities. Grade I/IV diastolic dysfunction (abnormal relaxation filling pattern), normal to mildly elevated filling pressures. Left ventricular ejection fraction is estimated at 60 %. Right Ventricle Normal right ventricular size and systolic function. Right Atrium The right atrium is normal in size. Left Atrium The left atrium is normal in size. Mitral Valve Structurally normal mitral valve. Mild mitral valve regurgitation. Aortic Valve Structurally normal trileaflet aortic valve. Mild aortic valve calcification. Mild aortic valve stenosis, mean gradient 12.5 mmHg, SHAHRIAR 1.6 cm squared. Trace aortic valve regurgitation. Tricuspid Valve Structurally normal tricuspid valve. Trace tricuspid valve regurgitation. Pulmonic Valve Pulmonic valve not well visualized. Pericardium Normal pericardium without effusion. Aorta Normal ascending aorta dimension. IVC Inferior vena cava not visualized. CONCLUSIONS Normal left ventricular size, systolic function and wall thickness, with no regional wall motion abnormalities. Grade I/IV diastolic dysfunction (abnormal relaxation filling pattern), normal to mildly elevated filling pressures. Left ventricular ejection fraction is estimated at 60 %. Structurally normal mitral valve. Mild mitral valve regurgitation. Structurally normal trileaflet aortic valve. Mild aortic valve calcification. Mild aortic valve stenosis, mean gradient 12.5 mmHg, SHAHRIAR 1.6 cm squared. Trace aortic valve regurgitation. Previous study was 01/16/2017. Since then the mitral regurgitation, aortic stenosis and aortic regurgitation are new. Dr. Cole Gonzalez MD (Electronically Signed) Final Date: 17 June 2023 09:12 S
--- NOTE | 2023-06-16 08:56 | PC.PHAR ---
SPOKE WITH SANGITA CHENG TO GO OVER PT MED LIST. 06/16/23
[2023-06-16] MEDS: fenofibrate 145 mg Tablet PO (09:17)
[2023-06-16] MEDS: lisinopril 10 mg Tablet PO ×2 (09:17)
[2023-06-16] MEDS: metoprolol succinate ER (24 HR) 25 mg Tablet PO (09:17)
[2023-06-16 10:50] LABS: Iron 43 ug/dL (59-158); Percent Saturation 15.3 % (20-50); Total Iron Binding Capacity 280 mcg/dl; Unsaturated Iron Binding 237 ug/dL (112-347)
[2023-06-16 11:05] LABS: Vitamin B12 1180 pg/mL (232-1245)
--- NOTE | 2023-06-16 13:08 | P.PN_ITS ---
Subjective 2 Subjective: Admitted last night. Seen with family at bedside. Patient lying comfortably in bed. Hemodynamically has remained stable on and afebrile. On room air. As per the nursing staff patient's NIH score has gone up since last night because of right-sided pronator drift of the arm. Repeat CT head was done which was negative for acute abnormality. Awaiting to be seen by PT and OT along with speech therapy. Vitals/I&O/Wt Last Vital Signs Temp 98.5 F 06/16/23 09:00 Pulse 64 06/16/23 11:00 Resp 22 H 06/16/23 11:00 BP 152/63 06/16/23 11:00 Pulse Ox 97 06/16/23 10:00 O2 Del Method Room Air 06/16/23 10:00 O2 Flow Rate 2 06/16/23 08:00 06/15/23 06/16/23 06/16/23 22:59 06:59 14:59 Intake Total 100 / 100 50 / 50 Output Total 925 / 925 Balance -825 / -825 50 / 50 Weight last 48 hrs Weight 79.469 kg Weight 78.471 kg Weight 77.564 kg Weight 81.647 kg Physical Exam 2 Narrative: General: No acute distress, AO x3 HEENT: PERRLA, pupils bilaterally equal and reactive, pallors not present Chest: Normal vesicular breath sounds, no added sounds, equal good air entry bilaterally CVS: S1-S2 regular, no murmurs, no tachycardia, no gallops, no rubs Abdomen: Soft, nontender, no organomegaly, bowel sounds present Neuro: Awake, alert dysarthria, slurred speech, symmetrical strength 5 out of 5 bilaterally upper and lower extremities, no facial deformity, right-sided pronator drift of the arm Data 06/16/23 04:14 06/16/23 04:14 A&P Assessment and plan (1) Cerebrovascular accident: Post TNKase at 9:45 PM last night. Repeat CT head for now given changes in NIH score. Plan for repeat CT head in evening 24 hours post TNKase. Patient allergic to statins. Have advised family to try pravastatin or simvastatin as an outpatient. Unfortunately both bottle and simvastatin not available inpatient. Continue with home dose of fenofibrate. Appreciate A1c and lipid panel. Start aspirin 24 hours post TNKase. Goal blood pressure normal. Less than 140/90 mmHg. Blood pressure so far stable. Continue with home dose of lisinopril, metoprolol succinate. If needed can uptitrate lisinopril. Follow-up echocardiogram results. Awaiting PT/OT/speech therapy assessment. N.p.o. till then. Advance diet as per speech therapy. Qualifiers: CVA mechanism: unspecified Qualified Code(s): I63.9 - Cerebral infarction, unspecified (2) Oral bleeding: Tenecteplase infusion complicated by bleeding the upper gel. Patient is edentulous, bleeding improved by application of direct pressure via gauze. Plan UTI: Follow-up urine culture, continue with ceftriaxone 1 gm iv q24h History of CAD: Post PCI. Denies any active chest pain. Continue to monitor. Full code NPO. Advance diet as per speech therapy. DVT PPx: Scds only, a/c contraindicated Attestations 2 Medical Necessity Statement*: Requires further hospitalization for post TNKase care in a patient admitted with CVA. Diagnoses Cerebrovascular accident I63.9 CVA mechanism: unspecified Oral bleeding K13.79
--- NOTE | 2023-06-16 19:12 | PC.NURSE ---
Shift Summary: Uneventful shift. Patient rested in bed throughout the day. NIHSS score was 11 this morning, prompting a head CT with no acute changes compared to previous one, there is still a 24 hr post tnkase scheduled for 2100 tonight. Defeceits are still present but less significant (see stroke scales). Mental status variable, usually only oriented to self. Started on a diet. PT has not yet worked with patient, will work with them after 24hr bedrest is over (2099 on 06/16/2023)
--- NOTE | 2023-06-16 21:00 | CTR_ITS ---
PROCEDURE INFORMATION: Exam: CT Head Without Contrast Exam date and time: 06/16/2023 10:45 AM Age: 88 years old Clinical indication: Other: Stroke/ tnkase; Additional info: Post tenecteplase TECHNIQUE: Imaging protocol: Computed tomography of the head without contrast. Radiation optimization: All CT scans at this facility use at least one of these dose optimization techniques: automated exposure control; mA and/or kV adjustment per patient size (includes targeted exams where dose is matched to clinical indication); or iterative reconstruction. COMPARISON: CT angio headneck* [id number] 06/15/2023 7:59 PM RADIATION DOSE METRICS: Total DLP (mGy-cm): 1119.48 FINDINGS: Brain: No acute confluent lobar ischemic infarct. No acute intracranial hemorrhage. Cerebral ventricles: The ventricles and sulci are prominent in size compatible with [id number] atrophy. Paranasal sinuses: Fluid level in the right maxillary sinus. Mastoid air cells: Visualized mastoid air cells are well aerated. Bones/joints: No acute calvarial fracture. Soft tissues: Visualized soft tissues are unremarkable. CT/CT head wo con* [id number] IMPRESSION: No acute intracranial abnormality. If symptoms persist, consider further evaluation with MRI, if MRI is clinically safe to obtain.
--- NOTE | 2023-06-16 21:00 | CTR_ITS ---
PROCEDURE INFORMATION: Exam: CT Head Without Contrast Exam date and time: 06/16/2023 9:48 PM Age: 88 years old Clinical indication: Other: 24hr followup tnkase; Additional info: Stroke/tnkase followup TECHNIQUE: Imaging protocol: Computed tomography of the head without contrast. Radiation optimization: All CT scans at this facility use at least one of these dose optimization techniques: automated exposure control; mA and/or kV adjustment per patient size (includes targeted exams where dose is matched to clinical indication); or iterative reconstruction. COMPARISON: CT head wo con* [id number] 06/16/2023 10:45 AM RADIATION DOSE METRICS: Total DLP (mGy-cm): 1057.58 FINDINGS: Brain: No evidence of intra-axial or extra-axial hemorrhage. No mass effect or midline shift. Crooks-white differentiation is maintained. Basilar cisterns are patent. Cerebral ventricles: No hydrocephalus. Paranasal sinuses: The visualized paranasal sinuses are well aerated. Mastoid air cells: The visualized mastoids and middle ears are clear. Bones/joints: The visualized calvarium and bony orbits are intact. Soft tissues: No gross soft tissue abnormality. CT/CT head wo con* [id number] IMPRESSION: 1. No acute intracranial abnormality. If there is clinical concern for acute ischemia beyond the window for neuro intervention, consider correlation with MRI.
[2023-06-17] VITALS (29 sets, daily range): BP systolic 101–148; BP diastolic 62–93; PULSE 66–83; RESP 18–28; TEMP 36.4–36.8; O2SAT 91–96; BMI 25.6
[2023-06-17] MEDS: cefTRIAXone 1,000 MG in sodium chloride 0.9% (plus) 50 ML 100 MG IV (04:44)
[2023-06-17 05:41] LABS: Basophils % 0.4 %; Eosinophils # 0.1 10^3/uL (0.0-0.8); Eosinophils % 1.1 %; Hematocrit 43.6 % (37-53); Lymphocytes # 1.4 10^3/uL (0.8-4.8); Mean Corpuscular HGB Conc 31.9 g/dL (30-55); Mean Corpuscular Hemoglobin 29.3 pg (27-33); Mean Platelet Volume 10.8 fL (7.4-10.4); Monocytes # 0.9 10^3/uL (0.2-0.9); Monocytes % 10.3 %; Neutrophils # 5.91 10^3/uL (1.8-7.7); Nucleated Red Blood Cells % 0 %; Platelet Count 320 10^3/cmm (157-399); Red Blood Count 4.74 10^6/uL (3.85-5.65); Red Cell Distribution Width 13.4 % (12.1-15.1); White Blood Count 8.33 10^3/uL (3.29-11.43)
[2023-06-17 06:16] LABS: Alanine Aminotransferase 11 U/L (0-41); Alkaline Phosphatase 71 U/L (40-130); Anion Gap 15.6 (5-19); Aspartate Amino Transferase 25 U/L (0-40); Blood Urea Nitrogen 14 mg/dL (8-23); Calcium 9.6 mg/dL (8.5-10.5); Carbon Dioxide 23 mmol/L (22-29); Chloride 105 mmol/L (98-107); Globulin 2.6 g/dL (1.3-4.6); Glucose 133 mg/dL (65-115); Osmolality Calculated 290 mOsm/kg (285-295); Potassium 4.6 mmol/L (3.5-5.1); Sodium 139 mmol/L (136-145); Total Bilirubin 0.4 mg/dL (0.15-1.2); Total Protein 6.6 g/dL (6.6-8.7)
[2023-06-17 06:33] LABS: Folate Level > 20.0 ng/mL (4.5-32.2)
[2023-06-17] MEDS: finasteride 5 mg Tablet PO (08:30)
[2023-06-17] MEDS: fenofibrate 145 mg Tablet PO (08:30)
[2023-06-17] MEDS: lisinopril 10 mg Tablet PO (08:30)
[2023-06-17] MEDS: metoprolol succinate ER (24 HR) 25 mg Tablet PO (08:30)
--- NOTE | 2023-06-17 12:33 | P.PN_ITS ---
Subjective 2 Subjective: He reports he is feeling okay. Denies any pain or discomfort. Denies any worsening of symptoms. Per discussion with his daughter, however, he has lost some of his ability to communicate, she has also noticed some cognitive decline with him having difficulty particularly with numbers. Loss of right-sided visual field. As well as difficulties with weakness in right upper and lower extremity, some return of function/power in right lower extremity after TNK, right upper extremity with persistent weakness. Participated with PT. Vitals/I&O/Wt Last Vital Signs Temp 98.0 F 06/17/23 05:00 Pulse 73 06/17/23 12:00 Resp 18 06/17/23 05:00 BP 119/65 06/17/23 12:00 Pulse Ox 95 06/17/23 12:00 O2 Del Method Room Air 06/17/23 10:51 O2 Flow Rate 2 06/16/23 22:26 06/16/23 06/17/23 06/17/23 22:59 06:59 14:59 Intake Total 200 / 450 50 / 500 200 / 200 Output Total 500 / 500 350 / 850 Balance -300 / -50 -300 / -350 200 / 200 Weight last 48 hrs Weight 78.67 kg Weight 79.469 kg Weight 78.471 kg Weight 77.564 kg Weight 81.647 kg Physical Exam 2 Narrative: Accompanied by his daughter Sitting up in chair. Const: GENERAL APPEARANCE: cooperative ORIENTATION/CONSCIOUSNESS: Yes awake HENMT: COMMON NORMALS: oropharynx normal Neck/C-Spine: COMMON NORMALS: no JVD Resp: COMMON NORMALS: normal respiratory effort and clear to auscultation bilaterally AUSCULTATION: clear to auscultation bilaterally Cardio: COMMON NORMALS: no JVD, regular rhythm, S1 normal heart sound present, S2 normal heart sound present and No murmurs present (Cardio) RHYTHM: regular rhythm HEART SOUNDS: S1 normal heart sound present and S2 normal heart sound present GI: COMMON NORMALS: Normal to inspection, nondistended, normoactive bowel sounds present, Soft to palpation and non-tender PALPATION: Yes Soft to palpation Extremity: COMMON NORMALS: no joint enlargement and no pedal edema Neuro: OTHER: Some difficulty following directions. I do not appreciate facial droop, no significant dysarthria, aphasia. Tracking horizontally without difficulty. Right visual field deficit. Right upper extremity weakness, drift, arm drifts down to armrest. Sensation reports symmetrical, although having some difficulties with his exam. Does appear to have possibly some neglect of the right side on sensory exam. Skin: COMMON NORMALS: no rashes or lesions noted GENERAL SKIN EXAM: no rashes or lesions noted Data 06/17/23 04:30 06/17/23 04:30 Micro: Microbiology 06/15/23 20:38 Urine Culture - Final Urine,Clean Catch A&P Assessment and plan (1) Cerebrovascular accident: Oral bleeding so far has subsided. Has had repeat CBC, reviewed, hemoglobin noted normal, platelets reviewed, normal. Follow-up CBC requested. Reviewed chemistry, echocardiogram. As well as had repeat CT head, reviewed, unremarkable without bleeding. Placed orders for transfer to medical surgical floor. Start aspirin 81 mg daily at current time. Monitor blood pressures. Unable to trial statin here and he would like to trial it after discharge. Worked with physical therapy, elevated fall risk, needing further physical therapy. Discussed with onsite case manager. Patient family have spoken with case management and arrangements will be underway for rehabilitation after discharge. Follow-up with neurology. Qualifiers: CVA mechanism: unspecified Qualified Code(s): I63.9 - Cerebral infarction, unspecified (2) Oral bleeding: Resolved. Reviewed hemoglobin, platelets. Recent dental extraction. Supposed to have a follow-up appointment with dentist. Plan UTI: Question of possible UTI. Continues on ceftriaxone. Reviewed urine culture, so far normal samra. Follow-up culture. Follow-up urine culture, continue with ceftriaxone 1 gm iv q24h History of CAD: Post PCI. Denies any active chest pain. Continue to monitor. Full code DVT PPx: Scds only, a/c contraindicated Attestations 2 Medical Necessity Statement*: Continue admission for assessment management following CVA initiation of antiplatelet after TNK, optimization of risk, assessment/treatment of possible UTI, post discharge planning and arrangements. and High MDM includes amount and/or complexity of data reviewed/ordered [ resulted lab(s)/test(s), ordered lab(s)/test(s), independent historian and other healthcare professional discussion] as documented Diagnoses Cerebrovascular accident I63.9 CVA mechanism: unspecified Oral bleeding K13.79
--- NOTE | 2023-06-17 14:53 | PC.NURSE ---
Report called to Riri in [facility] dept.
--- NOTE | 2023-06-17 15:00 | PC.SOCIAL ---
Pg 2 IMM Explained to pt & daughter, Pg 2 IMM. No questions voiced. Provided pt a copy. Initialed, dated, & timed a copy & placed in chart.
--- NOTE | 2023-06-17 15:03 | PC.NURSE ---
Pt unable to maintain weight and almost fell while transferring to w/c to move to room 250-2. Pt being transferred to room with NT assisting.
[2023-06-17] MEDS: aspirin 81 mg EC Tablet PO (16:00)
[2023-06-17] MEDS: pneumococcal (23 valent) SDV 0.5 mL IM (21:11)
[2023-06-18] VITALS (7 sets, daily range): BP systolic 124–155; BP diastolic 70–80; PULSE 75–90; RESP 18–20; TEMP 36.2–38.4; O2SAT 91–95
[2023-06-18] MEDS: cefTRIAXone 1,000 MG in sodium chloride 0.9% (plus) 50 ML 100 MG IV (04:36)
[2023-06-18 04:56] LABS: Basophils % 0.3 %; Eosinophils # 0.1 10^3/uL (0.0-0.8); Eosinophils % 0.9 %; Hematocrit 43.1 % (37-53); Lymphocytes # 1.3 10^3/uL (0.8-4.8); Lymphocytes % 14.5 %; Mean Corpuscular HGB Conc 32.9 g/dL (30-55); Mean Corpuscular Hemoglobin 29.6 pg (27-33); Mean Platelet Volume 10.7 fL (7.4-10.4); Monocytes % 11.5 %; Neutrophils # 6.37 10^3/uL (1.8-7.7); Neutrophils % 72.3 %; Nucleated Red Blood Cells % 0 %; Platelet Count 380 10^3/cmm (157-399); Red Blood Count 4.79 10^6/uL (3.85-5.65); Red Cell Distribution Width 13.5 % (12.1-15.1); White Blood Count 8.81 10^3/uL (3.29-11.43)
[2023-06-18] MEDS: metoprolol succinate ER (24 HR) 25 mg Tablet PO (08:55)
[2023-06-18] MEDS: fenofibrate 145 mg Tablet PO (08:55)
[2023-06-18] MEDS: aspirin 81 mg EC Tablet PO (08:55)
[2023-06-18] MEDS: finasteride 5 mg Tablet PO (08:56)
[2023-06-18] MEDS: lisinopril 10 mg Tablet PO (08:56)
[2023-06-18 11:08] LABS: SARS Covid-2 Antigen negative (Negative)
--- NOTE | 2023-06-18 14:26 | CT_ITS ---
WS: [id number] CT HEAD NONCONTRAST HISTORY: Lethargy, s/p TNK TECHNIQUE: Contiguous axial imaging performed through the brain in 3.0 mm imaging. Bone and soft tiss ue windows. Sagittal and coronal reformats reviewed. All CT scans at [facility] use at least one of these dose optimization techniques: automated exposure control; mA and/or kV adjustment per pa tient size (includes targeted exams where dose is matched to clinical indication); or iterative recon struction. DLP: 1149.09 mGy.cm COMPARISON: 06/16/2023 Interval infarct involving in the LEFT posterior cerebral artery territory. There is low-attenuation with loss of the ramírez-white matter involving the LEFT occipital lobe, LEFT thalamus and the posterior medial temporal lobe. No associated hemorrhage. Otherwise mild small vessel ischemic disease. No atrophy or prior infarcts or herniation. Ventricles: Normal size with no hydrocephalus. Paranasal sinuses: Mild mucoperiosteal thickening in the RIGHT maxillary sinus. Mastoid air cells: Well pneumatized. Calvarium and scalp: Skull is intact with no soft tissue edema or swelling. IMPRESSION: 1. No acute intracranial hemorrhage. 2. Interval development of a large evolving infarct in the LEFT posterior cerebral artery territory.
--- NOTE | 2023-06-18 14:26 | XRR_ITS ---
PROCEDURE INFORMATION: Exam: XR Chest Exam date and time: 06/18/2023 2:39 PM Age: 88 years old Clinical indication: Other: Lethargy; Additional info: Lethargy, CVA TECHNIQUE: Imaging protocol: Radiologic exam of the chest. Views: 1 view. COMPARISON: CR (CHEST, ) 06/15/2023 7:49 PM FINDINGS: Lungs: No focal consolidation. Pleural spaces: No evidence of pneumothorax. No evidence of pleural effusion. Heart/Mediastinum: Cardiomediastinal silhouette is within normal limits. Bones/joints: No evidence of acute osseous abnormality. Multiple old left-sided rib fractures. XR/XR chest 1V portable [id number] IMPRESSION: 1. No acute cardiopulmonary abnormality.
--- NOTE | 2023-06-18 15:23 | PC.OT ---
ATTEMPTED TWICE. FAMILY STATES PATIENT HAD A ROUGH NIGHT AND REQUEST THAT WE HOLD OT TREATMENT TODAY. WILL ATTEMPT AGAIN TOMORROW.
--- NOTE | 2023-06-18 16:25 | PC.NURSE ---
Patient up in chair most of shift with family at bedside. Family requested patient be changed to DNR code status from full code. Physician notified and code status was initiated on this shift. Patient's family was not comfortable transferring patient to LTC today for rehab. Patient is oriented to self with moderate impairments to upper and lower extremities. This nurse trialed thin water for medication pass this AM and patient was not able to tolerate. Medications were crushed in applesauce and patient tolerated well. Speech reevaluation requested. Plan of care ongoing.
[2023-06-18] MEDS: ketorolac 30 mg/mL INJ 15 MG IVP (20:14)
--- NOTE | 2023-06-18 21:53 | P.PN_ITS ---
Subjective 2 Subjective: He was more sleepy this morning as per family and there was concern for possibly some weakness on the left side. Denies headache. Vitals/I&O/Wt Last Vital Signs Temp 100.1 F H 06/18/23 21:28 Pulse 88 06/18/23 20:25 Resp 18 06/18/23 20:25 BP 147/77 06/18/23 20:25 Pulse Ox 92 06/18/23 20:25 O2 Del Method Room Air 06/18/23 20:25 O2 Flow Rate 2 06/16/23 22:26 06/18/23 06/18/23 06/18/23 06:59 14:59 22:59 Intake Total 170 / 850 480 / 480 480 / 960 Output Total 115 / 385 Balance 55 / 465 480 / 480 480 / 960 Weight last 48 hrs Weight 78.727 kg Weight 78.67 kg Physical Exam 2 Narrative: Accompanied by Another one of his daughters Sitting up in chair. Const: GENERAL APPEARANCE: cooperative ORIENTATION/CONSCIOUSNESS: Yes awake HENMT: COMMON NORMALS: oropharynx normal Neck/C-Spine: COMMON NORMALS: no JVD Resp: COMMON NORMALS: normal respiratory effort and clear to auscultation bilaterally AUSCULTATION: clear to auscultation bilaterally Cardio: COMMON NORMALS: no JVD, regular rhythm, S1 normal heart sound present, S2 normal heart sound present and No murmurs present (Cardio) RHYTHM: regular rhythm HEART SOUNDS: S1 normal heart sound present and S2 normal heart sound present GI: COMMON NORMALS: Normal to inspection, nondistended, normoactive bowel sounds present, Soft to palpation and non-tender PALPATION: Yes Soft to palpation Extremity: COMMON NORMALS: no joint enlargement and no pedal edema Neuro: OTHER: Lethargic late this morning, trouble following commands. No drift in left upper extremity. Some weakness left lower extremity. Difficulty lifting it up for the chair. I do not appreciate facial droop, no significant dysarthria, aphasia. Skin: COMMON NORMALS: no rashes or lesions noted GENERAL SKIN EXAM: no rashes or lesions noted Data 06/18/23 04:19 06/17/23 04:30 A&P Assessment and plan (1) Cerebrovascular accident: More lethargic this morning, concern for possible weakness on the left side today. Requested repeat CT head, reviewed, noted interval large infarct left posterior cerebral artery now visible. Oral bleeding so far has subsided. Has had repeat CBC, reviewed, hemoglobin noted normal, platelets reviewed, normal. Follow-up CBC requested. Reviewed chemistry, echocardiogram. As well as had repeat CT head, reviewed, unremarkable without bleeding. Placed orders for transfer to medical surgical floor. Start aspirin 81 mg daily at current time. Monitor blood pressures. Unable to trial statin here and he would like to trial it after discharge. Worked with physical therapy, elevated fall risk, needing further physical therapy. Discussed with returned case inspector. Patient family have spoken with case management and arrangements will be underway for rehabilitation after discharge. Follow-up with neurology. Qualifiers: CVA mechanism: unspecified Qualified Code(s): I63.9 - Cerebral infarction, unspecified (2) Oral bleeding: Resolved. Reviewed hemoglobin, platelets. Recent dental extraction. Supposed to have a follow-up appointment with dentist. Plan Encephalopathy: Acute change this morning. Lethargic today, unclear cause of encephalopathy. Recheck CT, UA, chest x-ray. Reviewed, without abnormality. More awake later on participating with speech therapy. Trial of diet. Fever this evening. Without obvious source. Possibly some aspiration given recent CVA. Follow-up oxygenation. Will obtain respiratory viral panel. UTI: Reviewed urine culture, extragenital samra on day 2. Question of possible UTI. Continues on ceftriaxone. Reviewed urine culture, so far normal samra. Follow-up culture. Follow-up urine culture, continue with ceftriaxone 1 gm iv q24h History of CAD: Post PCI. Denies any active chest pain. Continue to monitor. Family has considered and would like to change CODE STATUS -in case of cardiopulmonary arrest, no resuscitation. DVT PPx: Scds only, a/c contraindicated Attestations 2 Medical Necessity Statement*: Continue admission for assessment management with acute encephalopathy, following CVA initiation of antiplatelet after TNK, optimization of risk, assessment/treatment of possible UTI, post discharge planning and arrangements. Diagnoses Cerebrovascular accident I63.9 CVA mechanism: unspecified Oral bleeding K13.79
[2023-06-19 00:23] LABS: Adenovirus Not Detected (NOT DETECT); Chlamydia Pneumoniae Not Detected (NOT DETECT); Coronavirus 229E,HKU1,NL63,OC4 Not Detected (NOT DETECT); Human Metapneumovirus Not Detected (NOT DETECT); Human Rhinovirus/Enterovirus Not Detected (NOT DETECT); Influenza A Not Detected (NOT DETECT); Influenza A H1 Not Detected (NOT DETECT); Influenza A H1-2009 Not Detected (NOT DETECT); Influenza A H3 Not Detected (NOT DETECT); Influenza B Not Detected (NOT DETECT); Mycoplasma Pneumoniae Not Detected (NOT DETECT); Parainfluenza Virus Type 1 Not Detected (NOT DETECT); Parainfluenza Virus Type 2 Not Detected (NOT DETECT); Parainfluenza Virus Type 3 Not Detected (NOT DETECT); Parainfluenza Virus Type 4 Not Detected (NOT DETECT); Respiratory Syncytial Virus A Not Detected (NOT DETECT); Respiratory Syncytial Virus B Not Detected (NOT DETECT); SARS-COV-2 Not Detected (NOT DETECT)
[2023-06-19 01:00] VITALS: BP 132/62; PULSE 79; RESP 16; TEMP 36.8; O2SAT 92
[2023-06-19] MEDS: cefTRIAXone 1,000 MG in sodium chloride 0.9% (plus) 50 ML 100 MG IV (04:38)
[2023-06-19 05:00] LABS: Basophils % 0.3 %; Eosinophils % 0.2 %; Hematocrit 42.5 % (37-53); Lymphocytes # 1.5 10^3/uL (0.8-4.8); Lymphocytes % 16.1 %; Mean Corpuscular HGB Conc 32.2 g/dL (30-55); Mean Corpuscular Hemoglobin 29.1 pg (27-33); Mean Corpuscular Volume 90.4 fl (82-101); Mean Platelet Volume 10.6 fL (7.4-10.4); Monocytes # 1.2 10^3/uL (0.2-0.9); Monocytes % 12.4 %; Neutrophils # 6.73 10^3/uL (1.8-7.7); Neutrophils % 70.5 %; Nucleated Red Blood Cells % 0 %; Platelet Count 395 10^3/cmm (157-399); Red Cell Distribution Width 13.4 % (12.1-15.1); White Blood Count 9.55 10^3/uL (3.29-11.43)
[2023-06-19 05:19] VITALS: BP 156/77; PULSE 76; RESP 18; TEMP 36.8; O2SAT 92
[2023-06-19 05:19] LABS: Alanine Aminotransferase 9 U/L (0-41); Albumin Level 3.3 g/dL (3.5-5.2); Alkaline Phosphatase 67 U/L (40-130); Anion Gap 14.9 (5-19); Aspartate Amino Transferase 16 U/L (0-40); Blood Urea Nitrogen 33 mg/dL (8-23); Calcium 9.8 mg/dL (8.5-10.5); Carbon Dioxide 25 mmol/L (22-29); Chloride 104 mmol/L (98-107); Creatinine Clr Calc Pharmacy 46.1943; Globulin 3.5 g/dL (1.3-4.6); Glucose 140 mg/dL (65-115); Osmolality Calculated 300 mOsm/kg (285-295); Potassium 3.9 mmol/L (3.5-5.1); Sodium 140 mmol/L (136-145); Total Bilirubin 0.7 mg/dL (0.15-1.2); Total Protein 6.8 g/dL (6.6-8.7)
[2023-06-19 07:49] VITALS: BP 150/83; PULSE 75; RESP 17; TEMP 36.3; O2SAT 94
[2023-06-19] MEDS: lisinopril 10 mg Tablet PO (09:21)
[2023-06-19] MEDS: metoprolol succinate ER (24 HR) 25 mg Tablet PO (09:21)
[2023-06-19] MEDS: aspirin 81 mg EC Tablet PO (09:21)
[2023-06-19] MEDS: finasteride 5 mg Tablet PO (09:21)
[2023-06-19] MEDS: fenofibrate 145 mg Tablet PO (09:21)
[2023-06-19 11:31] VITALS: BP 130/72; PULSE 69; RESP 18; TEMP 36.4; O2SAT 97
--- NOTE | 2023-06-19 12:18 | PC.SOCIAL ---
IMM Update pg 2 of IMM updated and reviewed w/ patient and his daughter. Copy provided and copy dated, initialed and placed in chart.
[2023-06-19 16:22] VITALS: BP 149/75; PULSE 88; RESP 18; TEMP 37.3; O2SAT 96
[2023-06-19 17:23] LABS: Add Urine Microscopic? YES; Bilirubin Urine Neg (Negative); Blood Urine Neg (Negative); Glucose Urine UA Norm (Normal); Ketones Urine Negative (Negative); Leukocyte Esterase Urine Negative (Negative); Nitrate Urine Negative (Negative); Protein Urine Neg (Negative); Urine Appearance SL Hazy (CLEAR); Urine Color Yellow (Yellow); Urobilinogen Urine Norm (Negative); pH Urine 5 (5-7)
[2023-06-19 17:33] LABS: Bacteria Urine TRACE /hpf; Mucus Urine 3+ /hpf; RBC Urine 0-4 /hpf (0-2); Transitional Epi Cells Urine 0-4 /hpf
[2023-06-19 17:34] LABS: Add Urine Culture? No
[2023-06-19 21:00] VITALS: BP 123/73; PULSE 89; RESP 18; TEMP 37.7; O2SAT 93
--- NOTE | 2023-06-19 21:02 | PM.PN ---
Subjective Subjective: Lethargic. Wakes up to voice. Denies headache, no pain or discomfort. Denies any new symptoms. Vitals/I&O/Wt Last Vital Signs Temp 99.1 F 06/19/23 16:22 Pulse 88 06/19/23 16:22 Resp 18 06/19/23 16:22 BP 149/75 06/19/23 16:22 Pulse Ox 96 06/19/23 16:22 O2 Del Method Room Air 06/19/23 16:22 O2 Flow Rate 2 06/16/23 22:26 06/19/23 06/19/23 06/19/23 06:59 14:59 22:59 Intake Total 170 / 1130 480 / 480 240 / 720 Output Total 400 / 400 Balance 170 / 1130 480 / 480 -160 / 320 Weight last 48 hrs Weight 76.771 kg Weight 78.727 kg Physical Exam Narrative: Accompanied by his daughter Sitting up in chair. Const: GENERAL APPEARANCE: cooperative ORIENTATION/CONSCIOUSNESS: Yes awake HENMT: COMMON NORMALS: oropharynx normal Neck/C-Spine: COMMON NORMALS: no JVD Resp: COMMON NORMALS: normal respiratory effort and clear to auscultation bilaterally AUSCULTATION: clear to auscultation bilaterally Cardio: COMMON NORMALS: no JVD, regular rhythm, S1 normal heart sound present, S2 normal heart sound present and No murmurs present (Cardio) RHYTHM: regular rhythm HEART SOUNDS: S1 normal heart sound present and S2 normal heart sound present GI: COMMON NORMALS: Normal to inspection, nondistended, normoactive bowel sounds present, Soft to palpation and non-tender PALPATION: Yes Soft to palpation Extremity: COMMON NORMALS: no joint enlargement and no pedal edema Neuro: OTHER: Lethargic, trouble following commands. Generalized weakness. Does not appear to have drift in left upper extremity. Difficulty lifting it up for the chair. I do not appreciate facial droop, no significant dysarthria, aphasia. Skin: COMMON NORMALS: no rashes or lesions noted GENERAL SKIN EXAM: no rashes or lesions noted Data 06/19/23 04:20 06/19/23 04:20 Micro: Microbiology 06/19/23 13:25 Blood Culture - Preliminary Blood SPECIMEN COLLECTED 06/19/23 13:20 Blood Culture - Preliminary Blood SPECIMEN COLLECTED A&P Assessment and plan (1) Cerebrovascular accident: Continues to have lethargy, although is arousable to voice, seems to have moments of more clarity, has been eating per history obtained from his daughter. He has tried working with physical therapy today. Discussed with patient's family, with large posterior cerebellar CVA at risk of life-threatening cerebral edema, will monitor in the hospital for now. Monitor blood pressures, avoid any soft blood pressures. Initiate IV fluids if needed. Generalized weakness, I do not appreciate drift on left side, although does require assistance lifting limbs, has more trouble with the legs. Reviewed CT head, chest x-ray, UA, reviewed respiratory viral panel. Discussed with family. Discussed with protective services case worker. Oral bleeding so far has subsided. Has had repeat CBC, reviewed, hemoglobin noted normal, platelets reviewed, normal. Follow-up CBC requested. Reviewed chemistry, echocardiogram. As well as had repeat CT head, reviewed, unremarkable without bleeding. Placed orders for transfer to medical surgical floor. Start aspirin 81 mg daily at current time. Monitor blood pressures. Unable to trial statin here and he would like to trial it after discharge. Worked with physical therapy, elevated fall risk, needing further physical therapy. Discussed with protective services case worker. Patient family have spoken with case management and arrangements will be underway for rehabilitation after discharge. Follow-up with neurology. Qualifiers: CVA mechanism: unspecified Qualified Code(s): I63.9 - Cerebral infarction, unspecified (2) Oral bleeding: Resolved. Reviewed hemoglobin, platelets. Recent dental extraction. Supposed to have a follow-up appointment with dentist. Plan Encephalopathy: Continue monitoring in the hospital, IV fluids if needed given large posterior CVA. Lethargic episodes, unclear cause of encephalopathy, possibly infarct/vishal-infarct edema. Seizure precautions. He did have a fever of 101 Fahrenheit last night. Blood cultures requested. Follow-up. Continue ceftriaxone. Reviewed vitals, CBC, chemistry, head CT, UA, chest x-ray, respiratory viral panel. UTI: Reviewed urine culture, extragenital samra on day 2. Question of possible UTI. Continues on ceftriaxone. Reviewed urine culture, so far normal samra. Follow-up culture. Follow-up urine culture, continue with ceftriaxone 1 gm iv q24h History of CAD: Post PCI. Denies any active chest pain. Continue to monitor. Family has considered and would like to change CODE STATUS -in case of cardiopulmonary arrest, no resuscitation. DVT PPx: Scds only, a/c contraindicated Attestations Medical Necessity Statement*: Continue admission for assessment management with acute encephalopathy, following large posterior circulation CVA initiation of antiplatelet after TNK, optimization of risk, post discharge planning and arrangements. and High MDM includes amount and/or complexity of data reviewed/ordered [ resulted lab(s)/test(s), independent historian and other healthcare professional discussion] as documented Diagnoses Cerebrovascular accident I63.9 CVA mechanism: unspecified Oral bleeding K13.79
[2023-06-19] MEDS: ketorolac 30 mg/mL INJ 15 MG IVP (23:42)
[2023-06-20] VITALS (7 sets, daily range): BP systolic 98–137; BP diastolic 60–73; PULSE 63–97; RESP 16–20; TEMP 36.1–37.3; O2SAT 91–95
[2023-06-20 05:07] LABS: Basophils % 0.2 %; Eosinophils # 0.1 10^3/uL (0.0-0.8); Eosinophils % 0.9 %; Hematocrit 41.1 % (37-53); Lymphocytes # 1.6 10^3/uL (0.8-4.8); Lymphocytes % 19.3 %; Mean Corpuscular HGB Conc 31.9 g/dL (30-55); Mean Corpuscular Hemoglobin 29.1 pg (27-33); Mean Corpuscular Volume 91.3 fl (82-101); Mean Platelet Volume 10.7 fL (7.4-10.4); Monocytes # 0.9 10^3/uL (0.2-0.9); Monocytes % 11.6 %; Neutrophils # 5.43 10^3/uL (1.8-7.7); Neutrophils % 67.4 %; Nucleated Red Blood Cells % 0 %; Platelet Count 411 10^3/cmm (157-399); Red Cell Distribution Width 13.4 % (12.1-15.1); White Blood Count 8.07 10^3/uL (3.29-11.43)
[2023-06-20] MEDS: cefTRIAXone 1,000 MG in sodium chloride 0.9% (plus) 50 ML 100 MG IV (05:26)
[2023-06-20 05:30] LABS: Alanine Aminotransferase 11 U/L (0-41); Albumin Level 3.1 g/dL (3.5-5.2); Alkaline Phosphatase 66 U/L (40-130); Anion Gap 15.1 (5-19); Aspartate Amino Transferase 18 U/L (0-40); Blood Urea Nitrogen 42 mg/dL (8-23); Calcium 9.8 mg/dL (8.5-10.5); Carbon Dioxide 24 mmol/L (22-29); Chloride 105 mmol/L (98-107); Creatinine Clr Calc Pharmacy 46.8108; Globulin 3.6 g/dL (1.3-4.6); Glucose 151 mg/dL (65-115); Osmolality Calculated 303 mOsm/kg (285-295); Potassium 4.1 mmol/L (3.5-5.1); Sodium 140 mmol/L (136-145); Total Bilirubin 0.5 mg/dL (0.15-1.2); Total Protein 6.7 g/dL (6.6-8.7)
[2023-06-20] MEDS: fenofibrate 145 mg Tablet PO (09:02)
[2023-06-20] MEDS: finasteride 5 mg Tablet PO (09:02)
[2023-06-20] MEDS: metoprolol succinate ER (24 HR) 25 mg Tablet PO (09:02)
[2023-06-20] MEDS: lisinopril 10 mg Tablet PO (09:02)
[2023-06-20] MEDS: aspirin 81 mg EC Tablet PO (09:02)
[2023-06-20] MEDS: ketorolac 30 mg/mL INJ 15 MG IVP (21:50)
--- NOTE | 2023-06-20 22:36 | PM.PN ---
Subjective Subjective: He is more alert and cooperative today. Denies pain or discomfort. Denies any headache. Vitals/I&O/Wt Last Vital Signs Temp 98.1 F 06/20/23 20:22 Pulse 70 06/20/23 20:22 Resp 16 06/20/23 20:22 BP 122/73 06/20/23 20:22 Pulse Ox 95 06/20/23 20:22 O2 Del Method Room Air 06/20/23 20:22 O2 Flow Rate 2 06/16/23 22:26 06/20/23 06/20/23 06/20/23 06:59 14:59 22:59 Intake Total 290 / 1250 180 / 180 920 / 1100 Output Total 150 / 550 150 / 150 Balance 140 / 700 30 / 30 920 / 950 Weight last 48 hrs Weight 81.193 kg Weight 76.771 kg Physical Exam Narrative: Accompanied by his daughter Sitting up in chair. Const: GENERAL APPEARANCE: cooperative ORIENTATION/CONSCIOUSNESS: Yes awake HENMT: COMMON NORMALS: oropharynx normal Neck/C-Spine: COMMON NORMALS: no JVD Resp: COMMON NORMALS: normal respiratory effort and clear to auscultation bilaterally AUSCULTATION: clear to auscultation bilaterally Cardio: COMMON NORMALS: no JVD, regular rhythm, S1 normal heart sound present, S2 normal heart sound present and No murmurs present (Cardio) RHYTHM: regular rhythm HEART SOUNDS: S1 normal heart sound present and S2 normal heart sound present GI: COMMON NORMALS: Normal to inspection, nondistended, normoactive bowel sounds present, Soft to palpation and non-tender PALPATION: Yes Soft to palpation Extremity: COMMON NORMALS: no joint enlargement and no pedal edema Neuro: OTHER: Lethargic, trouble following commands. Generalized weakness. Does not appear to have drift in left upper extremity. Difficulty lifting it up for the chair. I do not appreciate facial droop, no significant dysarthria, aphasia. Skin: COMMON NORMALS: no rashes or lesions noted GENERAL SKIN EXAM: no rashes or lesions noted Data 06/20/23 04:18 06/20/23 04:18 Micro: Microbiology 06/19/23 13:25 Blood Culture - Preliminary Blood NEGATIVE TO DATE 06/19/23 13:20 Blood Culture - Preliminary Blood NEGATIVE TO DATE A&P Assessment and plan (1) Cerebrovascular accident: He appears to be more alert today. More easily arousable. Still generally weak. 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 Discussed fall risks with him and his daughters with the above and neurologic deficits including visual field deficits as well. Cautioned to maintain fall precautions at all times. Continue to monitor his mental status and blood pressures with large posterior circulation CVA. Noted blood pressure dipped down to 98/60 around midnight this morning. Would like to avoid dips in blood pressure. Decrease lisinopril dose to 5 mg. Monitor blood pressure. IV fluids if needed. If continues to do well, maintain blood pressure, possible discharge tomorrow. Discussed with registered nurse hh case manager. Reviewed vitals, CBC, BMP, blood culture. Blood culture remains negative. Otherwise remains afebrile, on room air sats 95%. No leukocytosis. Unclear source of fever. Possibly of some aspiration after CVA, oral bleeding. Continues to have lethargy, although is arousable to voice, seems to have moments of more clarity, has been eating per history obtained from his daughter. He has tried working with physical therapy today. Discussed with patient's family, with large posterior cerebellar CVA at risk of life-threatening cerebral edema, will monitor in the hospital for now. Monitor blood pressures, avoid any soft blood pressures. Initiate IV fluids if needed. Oral bleeding has subsided. Has had repeat CBC, reviewed, hemoglobin noted normal, platelets reviewed, normal. Follow-up CBC requested. Reviewed chemistry, echocardiogram. As well as had repeat CT head, reviewed, unremarkable without bleeding. Placed orders for transfer to medical surgical floor. ZAspirin 81 mg daily at current time. Monitor blood pressures. Unable to trial statin here and he would like to trial it after discharge. Worked with physical therapy, elevated fall risk, needing further physical therapy. Discussed with registered nurse hh case manager. Patient family have spoken with case management and arrangements will be underway for rehabilitation after discharge. Follow-up with neurology. Qualifiers: CVA mechanism: unspecified Qualified Code(s): I63.9 - Cerebral infarction, unspecified (2) Oral bleeding: Resolved. Reviewed hemoglobin, platelets. Recent dental extraction. Supposed to have a follow-up appointment with dentist. Plan Encephalopathy: So far with improvement. No further fever. Follow-up vitals. Continue monitoring in the hospital, IV fluids if needed given large posterior CVA. Lethargic episodes, unclear cause of encephalopathy, possibly infarct/vishal-infarct edema. Seizure precautions. He did have a fever of 101 Fahrenheit last night. Blood cultures requested. Follow-up. Continue ceftriaxone. Reviewed vitals, CBC, chemistry, head CT, UA, chest x-ray, respiratory viral panel. UTI: Reviewed urine culture, extragenital samra on day 2. Question of possible UTI. Continues on ceftriaxone. Reviewed urine culture, so far normal samra. Follow-up culture. Follow-up urine culture, continue with ceftriaxone 1 gm iv q24h History of CAD: Post PCI. Denies any active chest pain. Continue to monitor. Family has considered and would like to change CODE STATUS -in case of cardiopulmonary arrest, no resuscitation. DVT PPx: Scds only, a/c contraindicated Attestations Medical Necessity Statement*: Continue admission for assessment management with acute encephalopathy, following large posterior circulation CVA initiation of antiplatelet after TNK, optimization of risk, post discharge planning and arrangements. and High MDM includes amount and/or complexity of data reviewed/ordered [ resulted lab(s)/test(s), ordered lab(s)/test(s), independent historian and other healthcare professional discussion] as documented Diagnoses Cerebrovascular accident I63.9 CVA mechanism: unspecified Oral bleeding K13.79
[2023-06-21] VITALS: BP 119/63; PULSE 69; RESP 15; TEMP 36.7; O2SAT 92
[2023-06-21 04:00] VITALS: BP 138/68; PULSE 97; RESP 18; TEMP 36.4; O2SAT 92
[2023-06-21] MEDS: cefTRIAXone 1,000 MG in sodium chloride 0.9% (plus) 50 ML 100 MG IV (05:09)
[2023-06-21 06:00] VITALS: PULSE 64
[2023-06-21 07:41] VITALS: BP 121/71; PULSE 70; RESP 15; TEMP 36.6; O2SAT 96
[2023-06-21] MEDS: lisinopril 5 mg Tablet PO (09:19)
[2023-06-21] MEDS: metoprolol succinate ER (24 HR) 25 mg Tablet PO (09:20)
[2023-06-21] MEDS: finasteride 5 mg Tablet PO (09:21)
[2023-06-21] MEDS: lactobacillus 1 Tablet 1 TAB PO (09:22)
[2023-06-21] MEDS: fenofibrate 145 mg Tablet PO (09:24)
[2023-06-21] MEDS: aspirin 81 mg EC Tablet PO (09:25)
--- NOTE | 2023-06-21 10:01 | PC.SOCIAL ---
IMM Update pg 2 of IMM updated and reviewed w/ patient. Copy provided and copy dated, initialed and placed in chart.
[2023-06-21 11:32] VITALS: BP 125/77; PULSE 69; RESP 15; O2SAT 96
--- NOTE | 2023-06-21 11:56 | PM.DCS ---
Discharge Providers Date of Admission: 06/15/23 23:28 Date of Discharge: June 21, 2023 Attending Provider at Admission: January Heck MD Attending Provider at Discharge: Josr Garcia Primary Care Provider: WOOD Delgado Diagnoses at Discharge Discharge Diagnosis (1) Cerebrovascular accident: Status: Acute Qualifiers: CVA mechanism: unspecified Qualified Code(s): I63.9 - Cerebral infarction, unspecified (2) Oral bleeding: Status: Acute Reason for Visit Reason for Visit: possible stroke Hospital Course Hospital Course Very pleasant 88-year-old gentleman with history of CAD, HTN, DM 2, recent dental extraction, was admitted for assessment management after acute CVA, treated with TNK on presentation. Had slight improvement in symptoms but overall has significant residual deficits. Had some oral bleeding after TNK which subsided after some time after local compression. Subsequently also with encephalopathy, transient episode of fever, possibly microaspiration, with other workup unremarkable with negative blood culture, admission of over 2 midnights is anticipated for assessment of management of unremarkable UA, chest x-ray. Involving a large left posterior cerebral artery territory infarct on repeat CT without bleeding. He is at elevated risk of falls with residual right-sided upper and lower weakness, right-sided visual field deficits, some right-sided neglect, also with underlying chronic severe osteoarthritis of his knees. His encephalopathy has improved. He responds easily, interacts well, follows directions with some reinforcement required. Discharging to continue rehabilitation at SNF with requested follow-up with neurology and primary provider in office. Has not had any recurrent oral bleeding, he is asked to follow-up with his dentist for reassessment. He missed his appointment while he was in the hospital. He does have intracranial stenosis with severe stenosis noted/near occlusion at the P1 segment of the left POWERHOUSE OILER. Continues on aspirin. He has had statin intolerance in the past with more intensive statins, patient and family would like to try simvastatin. Cautioned to watch out for any symptoms of myopathy/rhabdomyolysis. Please reassess. In case of intolerance of statin consider obtaining approval for PCSK9 inhibitor. Initially concern for possibly also concomitant urinary tract infection, received treatment while in the hospital with ceftriaxone, however, urine culture has been unrevealing. Physical Exam Narrative: Accompanied by his daughter Sitting up in chair. In good spirits. Stood up to walk with therapy today. Const: GENERAL APPEARANCE: cooperative ORIENTATION/CONSCIOUSNESS: Yes awake HENMT: COMMON NORMALS: oropharynx normal Neck/C-Spine: COMMON NORMALS: no JVD Resp: COMMON NORMALS: normal respiratory effort and clear to auscultation bilaterally AUSCULTATION: clear to auscultation bilaterally Cardio: COMMON NORMALS: no JVD, regular rhythm, S1 normal heart sound present, S2 normal heart sound present and No murmurs present (Cardio) RHYTHM: regular rhythm HEART SOUNDS: S1 normal heart sound present and S2 normal heart sound present GI: COMMON NORMALS: Normal to inspection, nondistended, normoactive bowel sounds present, Soft to palpation and non-tender PALPATION: Yes Soft to palpation Extremity: COMMON NORMALS: no joint enlargement and no pedal edema Neuro: OTHER: Wakes up and responds easily. Stronger today. Only with mild drift today. No drift on the left. I do not appreciate facial droop. Right-sided visual field cut. Skin: COMMON NORMALS: no rashes or lesions noted GENERAL SKIN EXAM: no rashes or lesions noted Discharge Data Studies Completed and Pending Completed Studies During Hospitalization Category Date Time Status CT angio headneck* [id number]/37155 Stat Cat Scan 06/15/23 19:[address] head thrombolytic 25404 Stat Cat Scan 06/15/23 19:[address] head wo con* [id number] Routine Cat Scan 06/16/23 21:[address] head wo con* [id number] Routine Cat Scan 06/16/23 21:[address] head wo con* [id number] Routine Cat Scan 06/18/23 14:26 Completed CXRP [XR chest 1V portable [id number]] Routine Exams 06/18/23 14:26 Completed XR chest 1V portable [id number] Stat Exams 06/15/23 19:44 Completed CV. echo complete* [id number] Routine Ultrasound 06/16/23 06:00 Completed Pending at discharge Category Date Time Status Blood Culture Stat Lab 06/19/23 13:25 Results Radiology Impressions Head/Neck CTA 06/15/23 19:54 IMPRESSION: Severe stenosis/near occlusion of the P1 segment of the left POWERHOUSE OILER. IMPRESSION: No stenosis or occlusion. REFERENCES: NASCET CRITERIA. The degree of stenosis in the cervical segment of the internal carotid artery is based on NASCET criteria. Normal is no stenosis. Mild is less than 50% stenosis. Moderate is 50-69% stenosis. Severe is 70% to 99% stenosis. Total occlusion is no detectable patent lumen. ADDENDUM: 06/15/232032 THIS REPORT CONTAINS FINDINGS THAT MAY BE CRITICAL TO PATIENT CARE. The findings were verbally communicated via telephone conference with Dandy Granda at 8:31 PM CDT on 06/15/2023. The findings were acknowledged and understood. Chest X-Ray 06/18/23 14:26 IMPRESSION: 1. No acute cardiopulmonary abnormality. Laboratory Results WBC 8.07 10^3/uL (3.29-11.43) 06/20/23 04:18 RBC 4.50 10^6/uL (3.85-5.65) 06/20/23 04:18 Hgb 13.10 g/dL (11.27-16.99) 06/20/23 04:18 Hct 41.1 % (37-53) 06/20/23 04:18 MCV 91.3 fl (82-101) 06/20/23 04:18 MCH 29.1 pg (27-33) 06/20/23 04:18 MCHC 31.9 g/dL (30-55) 06/20/23 04:18 RDW 13.4 % (12.1-15.1) 06/20/23 04:18 Plt Count 411 10^3/cmm (157-399) H 06/20/23 04:18 MPV 10.7 fL (7.4-10.4) H 06/20/23 04:18 Neut % (Auto) 67.4 % 06/20/23 04:18 Lymph % (Auto) 19.3 % 06/20/23 04:18 [place] % (Auto) 11.6 % 06/20/23 04:18 Eos % (Auto) 0.9 % 06/20/23 04:18 Baso % (Auto) 0.2 % 06/20/23 04:18 Neut # (Auto) 5.43 10^3/uL (1.8-7.7) 06/20/23 04:18 Lymph # (Auto) 1.6 10^3/uL (0.8-4.8) 06/20/23 04:18 [place] # (Auto) 0.9 10^3/uL (0.2-0.9) 06/20/23 04:18 Eos # (Auto) 0.1 10^3/uL (0.0-0.8) 06/20/23 04:18 Baso # (Auto) 0.0 10^3/uL (0.0-0.1) 06/20/23 04:18 Nucleated RBC % (auto) 0 % 06/20/23 04:18 Nucleated RBCs # 0.0 /100WBC 06/20/23 04:18 PT 14.10 SECONDS (12.1-14.9) 06/15/23 19:38 INR 1.06 (0.8-1.2) 06/15/23 19:38 APTT 36.3 SECONDS (23.9-36.7) 06/15/23 19:38 Sodium 140 mmol/L (136-145) 06/20/23 04:18 Potassium 4.1 mmol/L (3.5-5.1) 06/20/23 04:18 Chloride 105 mmol/L (98-107) 06/20/23 04:18 Carbon Dioxide 24 mmol/L (22-29) 06/20/23 04:18 Anion Gap 15.1 (5-19) 06/20/23 04:18 BUN 42 mg/dL (8-23) H 06/20/23 04:18 Creatinine 1.2 mg/dL (0.7-1.2) 06/20/23 04:18 GFR Calculation Not Reportable 06/20/23 04:18 Glucose 151 mg/dL (65-115) H 06/20/23 04:18 Estimat Average Glucose 114 06/16/23 04:14 Hemoglobin A1c 5.6 % (4.0-6.0) 06/16/23 04:14 Calculated Osmolality 303 mOsm/kg (285-295) H 06/20/23 04:18 Calcium 9.8 mg/dL (8.5-10.5) 06/20/23 04:18 Magnesium 2.0 mg/dL (1.7-2.3) 06/15/23 19:38 Iron 43 ug/dL (59-158) L 06/16/23 04:14 TIBC 280 mcg/dl 06/16/23 04:14 % Saturation 15.3 % (20-50) L 06/16/23 04:14 Unsat Iron Binding 237 ug/dL (112-347) 06/16/23 04:14 Total Bilirubin 0.5 mg/dL (0.15-1.2) 06/20/23 04:18 AST 18 U/L (0-40) 06/20/23 04:18 ALT 11 U/L (0-41) 06/20/23 04:18 Alkaline Phosphatase 66 U/L (40-130) 06/20/23 04:18 C-Reactive Protein 14.6 mg/L (0.0-4.9) H 06/15/23 19:38 Total Protein 6.7 g/dL (6.6-8.7) 06/20/23 04:18 Albumin 3.1 g/dL (3.5-5.2) L 06/20/23 04:18 Globulin 3.6 g/dL (1.3-4.6) 06/20/23 04:18 Triglycerides 157 mg/dL (0-150) H 06/16/23 04:14 Cholesterol 214 mg/dL (0-200) H 06/16/23 04:14 LDL Cholesterol, Calc 150 mg/dL (50-129) H 06/16/23 04:14 HDL Cholesterol 33 mg/dL (60-100) L 06/16/23 04:14 LDL/HDL Ratio 4.55 RATIO (0.00-3.22) H 06/16/23 04:14 Cholesterol/HDL Ratio 6.48 mg/dL (1.0-5.00) H 06/16/23 04:14 Vitamin B12 1180 pg/mL (232-1245) 06/16/23 04:14 Folate > 20.0 ng/mL (4.5-32.2) 06/17/23 04:30 TSH 1.66 uIU/mL (0.27-4.20) 06/15/23 19:38 Urine Color Yellow (Yellow) 06/19/23 16:50 Urine Appearance Sl hazy (CLEAR) A 06/19/23 16:50 Urine pH 5 (5-7) 06/19/23 16:50 Ur Specific [place] 1.030 (1.005-1.030) 06/19/23 16:50 Urine Protein Neg (Negative) 06/19/23 16:50 Urine Glucose (UA) Norm (Normal) 06/19/23 16:50 Urine Ketones Negative (Negative) 06/19/23 16:50 Urine Blood Neg (Negative) 06/19/23 16:50 Urine Nitrate Negative (Negative) 06/19/23 16:50 Urine Bilirubin Neg (Negative) 06/19/23 16:50 Urine Urobilinogen Norm mg/dL (Negative) 06/19/23 16:50 Ur Leukocyte Esterase Negative (Negative) 06/19/23 16:50 Urine RBC 0-4 /hpf (0-2) H 06/19/23 16:50 Urine WBC 5-10 /hpf (0-5) H 06/19/23 16:50 Ur Squamous Epith Cells None /hpf (0-5) 06/19/23 16:50 Ur Transition Epith Cell 0-4 /hpf 06/19/23 16:50 Amorphous Sediment Not Reportable 06/19/23 16:50 Urine Bacteria Trace /hpf (NONE) 06/19/23 16:50 Hyaline Casts 5-10 /lpf H 06/19/23 16:50 Urine Mucus 3+ /hpf 06/19/23 16:50 Urine Opiates Screen Negative ng/mL (Negative) 06/15/23 20:38 Ur Barbiturates Screen Negative ng/mL (Negative) 06/15/23 20:38 Ur Phencyclidine Scrn Negative ng/mL (Negative) 06/15/23 20:38 Ur Amphetamines Screen Negative ng/mL (Negative) 06/15/23 20:38 U Benzodiazepines Scrn Negative ng/mL (Negative) 06/15/23 20:38 Urine Cocaine Screen Negative ng/mL (Negative) 06/15/23 20:38 U Marijuana (THC) Screen Negative ng/mL (Negative) 06/15/23 20:38 Ethyl Alcohol < 10 mg/dL (0-10) 06/15/23 19:38 Adenovirus (PCR) Not detected (NOT DETECT) 06/18/23 22:35 C. pneumoniae DNA (PCR) Not detected (NOT DETECT) 06/18/23 22:35 Coronavirus 229E (PCR) Not detected (NOT DETECT) 06/18/23 22:35 Human Metapneumovir PCR Not detected (NOT DETECT) 06/18/23 22:35 Influenza A (H1) PCR Not detected (NOT DETECT) 06/18/23 22:35 Influ A (H1/09) PCR Not detected (NOT DETECT) 06/18/23 22:35 Influenza A (H3) PCR Not detected (NOT DETECT) 06/18/23 22:35 Influenza Type A (PCR) Not detected (NOT DETECT) 06/18/23 22:35 Influenza Type B (PCR) Not detected (NOT DETECT) 06/18/23 22:35 M. pneumoniae (PCR) Not detected (NOT DETECT) 06/18/23 22:35 Parainfluenza 1 (PCR) Not detected (NOT DETECT) 06/18/23 22:35 Parainfluenza 2 (PCR) Not detected (NOT DETECT) 06/18/23 22:35 Parainfluenza 3 (PCR) Not detected (NOT DETECT) 06/18/23 22:35 Parainfluenza 4 (PCR) Not detected (NOT DETECT) 06/18/23 22:35 RSV Type A (PCR) Not detected (NOT DETECT) 06/18/23 22:35 RSV Type B (PCR) Not detected (NOT DETECT) 06/18/23 22:35 Entero/Rhino (PCR) Not detected (NOT DETECT) 06/18/23 22:35 SARS-CoV-2 (PCR) Not detected (NOT DETECT) 06/18/23 22:35 SARS-CoV-2 Ag (Rapid) negative (Negative) 06/18/23 10:20 Vitals Last Vital Signs Temp 97.8 F 06/21/23 07:41 Pulse 69 06/21/23 11:32 Resp 15 06/21/23 11:32 BP 125/77 06/21/23 11:32 Pulse Ox 96 06/21/23 11:32 O2 Del Method Room Air 06/21/23 11:32 O2 Flow Rate 2 06/16/23 22:26 Discharge Plan Discharge Patient Disposition: Xfer SNF Condition: Stable Prescriptions: New simvastatin 20 mg tablet 20 mg PO QPM Qty: 90 0RF Continued aspirin 325 mg tablet 325 mg PO QDAY multivitamin [Daily Multi-Vitamin] Tablet 1 tab PO DAILY fenofibrate nanocrystallized [Tricor] 145 mg tablet 145 mg PO DAILY Qty: 90 1RF finasteride 5 mg tablet 5 mg PO QDAY Qty: 90 1RF lisinopril 10 mg tablet 10 mg PO QDAY Qty: 90 1RF magnesium oxide 400 mg magnesium tablet 400 mg PO BID Qty: 180 1RF metformin 500 mg tablet extended release 24 hr 500 mg PO BID Qty: 180 1RF metoprolol succinate [Toprol XL] 25 mg tablet extended release 24 hr 25 mg PO Q24H Qty: 90 1RF acetaminophen 500 mg Tablet 500 mg PO Q6H PRN (Reason: pain or temp) [place]-3 Fish Oil 300-1,000 mg Capsule 2 cap PO DAILY latanoprost 0.005 % drops 1 drp ophthalmic (eye) BEDTIME brimonidine 0.2 % drops 1 drp ophthalmic (eye) BID timolol maleate 0.5 % drops 1 drp ophthalmic (eye) Q12H Discharge Orders: Discharge Order (Routine); Ordered 06/21/23 Ordered By: Josr Garcia Referrals: [facility]OSCI[facility] PROVIDERS [Provider Group] - 10/21/23 8:00 am () [facility] [place] [Outside] Shasta Reid [facility] [Primary Care Provider] - Patient Instructions: Simvastatin (By mouth), Tenecteplase (Into a vein) (TNKase), Ischemic Stroke (GEN), Prevent Cardiovascular Disease (GEN), Opioid Safety, Pain Management Activity Restrictions/Additional Instructions: Follow-up with your primary doctor and neurology for reassessment after stroke. Continue aspirin, fenofibrate. You are given prescription for trial of simvastatin, a less potent cholesterol medication, however, still there may be risk of muscle injury/rhabdomyolysis with combination with fenofibrate. Monitor for any symptoms of muscle pain or weakness, report immediately to primary provider's office and hold medication. In case of intolerance of statin discussed with your primary doctor consideration for PCSK9 inhibitor. Follow-up with your dentist for reassessment after tooth extraction and bleeding after the administration of clot Buster medication after stroke. During hospitalization was consideration of possible urinary tract infection, however, urine culture grew only mixed urogenital samra. Follow-up with your primary doctor. Continue follow-up with your primary doctor for optimization of cardiovascular risk factors, continue to monitor blood pressures 3 times daily, write down values, target blood pressure is 120/80. Include mild to moderate activity to help keep you active and help reduce progression of cardiovascular disease. Due to fall risk due to impaired balance, strength on the right side as well as impaired vision on the right side, maintain strict fall risk precautions. Walk only with assistance at this time and at all times with a walker. Discharge Attestations Time Spent in Discharge Care*: greater than 30 min Quality Metrics Clinical Quality Measures [ Cerebrovascular Accident { Contraindication to Antithrombotic: None; antithrombotic prescribed; Contraindication to Anticoagulation: Overlap treatment not indicated; Contraindication to Statin: None; Statin prescribed;}] Coding Level of Care Code 89032 Total time (in minutes) for Discharge: 50 Diagnoses Cerebrovascular accident I63.9 CVA mechanism: unspecified Oral bleeding K13.79
--- NOTE | 2023-06-21 12:18 | PC.NURSE ---
Report called to WILL Page at [facility]. IV out.
[2023-06-21 14:13] VITALS: BP 125/77; PULSE 69; RESP 15; O2SAT 96
== END 2023-06-21 14:15 | disposition skilled nursing facility (03) | DRG 62 ==
LOC: ER 21:04 → ICU 21:18 → MEDSURG 06-17 15:02
PROVIDERS: Student in an Organized Health Care Education/Training Program; Admitting Provider Student in an Organized Health Care Education/Training Program; Emergency Provider Emergency Medicine; PCP Nurse Practitioner; Visit Provider Internal Medicine
DX: I63.532 Cerebral infarction due to unspecified occlusion or stenosis of left posterior cerebral artery (principal); G81.91 Hemiplegia, unspecified affecting right dominant side; G93.49 Other encephalopathy; H33.21 Serous retinal detachment, right eye; Z94.84 Stem cells transplant status; N39.0 Urinary tract infection, site not specified; R29.810 Facial weakness; R47.1 Dysarthria and anarthria; R20.2 Paresthesia of skin; H53.9 Unspecified visual disturbance; I10 Essential (primary) hypertension; E78.5 Hyperlipidemia, unspecified; H40.9 Unspecified glaucoma; E11.9 Type 2 diabetes mellitus without complications; I25.10 Atherosclerotic heart disease of native coronary artery without angina pectoris; N40.1 Benign prostatic hyperplasia with lower urinary tract symptoms; M19.90 Unspecified osteoarthritis, unspecified site; R58 Hemorrhage, not elsewhere classified; T45.615A Adverse effect of thrombolytic drugs, initial encounter; Z11.52 Encounter for screening for COVID-19; Z79.84 Long term (current) use of oral hypoglycemic drugs; Z79.82 Long term (current) use of aspirin; Z95.5 Presence of coronary angioplasty implant and graft
CPT/HCPCS: 36415; 70450; 70496; 70498; 71045; 80053; 80061; 80306; 80307; 81001; 82607; 82746; 83036; 83540; 83550; 83735; 84443; 85025; 85610; 85730; 86140; 87040; 87086; 87426; 87486; 87581; 87633; 90471; 90732; 92507; 92523; 92526; 92610; 93005; 93306; 96374; 96376; 97110; 97161; 97167; 97530; 97535; G0378; J0696; J1885; J3101; J3490; Q9967

== ENCOUNTER 2023-07-08 06:00 | Outpatient (RCR) | payer MEDICARE, OTHER, SELFPAY | END 2023-07-17 23:59 | disposition home or self-care (01) | LOC: APO 06:00 | PROVIDERS: PCP Nurse Practitioner; Visit Provider Nurse Practitioner | DX: I63.9 Cerebral infarction, unspecified (principal) | CPT/HCPCS: 97110; 97162; 97530 ==

== ENCOUNTER → 2023-07-08 09:51 | Outpatient (BNVA) | payer MEDICARE, OTHER, SELFPAY | PROVIDERS: PCP Nurse Practitioner; Visit Provider Nurse Practitioner | DX: E11.9 Type 2 diabetes mellitus without complications (principal); Z79.84 Long term (current) use of oral hypoglycemic drugs | CPT/HCPCS: 80048; 85025 ==

== ENCOUNTER → 2023-07-10 10:07 | Outpatient (BNVA) | payer MEDICARE, OTHER, SELFPAY | PROVIDERS: PCP Nurse Practitioner; Visit Provider Nurse Practitioner | DX: R05.9 Cough, unspecified (principal) | CPT/HCPCS: 71046 ==